=== PATIENT | female | born 1965 | race Caucasian/White ===

== ENCOUNTER 2017-08-30 11:39 | Inpatient (IN) | payer BC ==
[2017-08-30] MEDS ORDERED: Ondansetron INJ* 2 MG/ML VIAL IV ONE (12:23)
[2017-08-30] MEDS ORDERED: Morphine INJ* 4 MG/ML 1 ML SYRINGE (NEW SYRINGE VERSION) IV ONE (12:23)
[2017-08-30 12:25] LABS: Hematocrit 27 % (35-47); Hemoglobin 7.8 g/dl (12.0-16.0); Mean Corpuscular HGB Conc 29 g/dl (31-36); Mean Corpuscular Hemoglobin 16 pg (27-31); Mean Corpuscular Volume 56 fL (80-97); Mean Platelet Volume 8.3 um3 (7.4-10.4); Platelet Count 247 10^3/ul (150-450); Red Blood Count 4.79 10^6/ul (4.0-5.4); Red Cell Distribution Width 22 % (10.5-15); White Blood Count 5.1 10^3/ul (3.5-10.8)
[2017-08-30] MEDS ORDERED: NS 0.9% 1000 ML* 1,000 ML IV SCH (12:30)
[2017-08-30 12:36] LABS: INR 0.9 (0.77-1.02)
[2017-08-30 12:45] LABS: EGFR Non-African American 86.8 (>60)
[2017-08-30 12:55] LABS: ABS Basophils 0.1 10^3/ul (0-0.2); ABS Eosinophils 0.1 10^3/ul (0-0.6); ABS Lymphocytes 1.3 10^3/ul (1.0-4.8); ABS Monocytes 0.5 10^3/ul (0-0.8); ABS Neutrophils 3.1 10^3/ul (1.5-7.7); ABS Nucleated RBC 0 10^3/ul; Eosinophil % 2.1 % (0-6); Lymphocyte % 25.3 % (25-47); Nucleated Red Blood Cells % 0
[2017-08-30] MEDS ORDERED: Iohexol 350* (CONTRAST) 500 ML MDV IV ONE (13:04)
--- NOTE | 2017-08-30 13:05 | RAD ---
INDICATION: Chest pressure and headache COMPARISON: None. TECHNIQUE: Single AP portable view of the chest was obtained. FINDINGS: Image quality is compromised due to the relative inferiority of a portable chest x-ray. The heart and mediastinum exhibit normal size and contour. The lungs are grossly clear. There is no evidence of a large pleural effusion. Visualized bones are normal for the patient's age. IMPRESSION: No radiographic evidence for acute cardiopulmonary abnormality on this portable chest x-ray.
--- NOTE | 2017-08-30 14:38 | RAD ---
HISTORY: Headache, neck pain COMPARISONS: CT dated August 30, 2017 TECHNIQUE: Multiple contiguous axial CT scans were obtained of the head and neck after the administration of nonionic intravenous contrast timed to the systemic arterial phase of contrast enhancement. Coronal and sagittal multiplanar reformations are submitted for review. Multiple 3-D maximum intensity projection reconstructions are also submitted for review. FINDINGS: CTA NECK: AORTIC ARCH: There is a normal three-vessel branching pattern of the aortic arch. There is no ostial or proximal stenosis of the cephalic great vessels. RIGHT VERTEBRAL ARTERY: The right vertebral artery is patent along its course, without stenosis. LEFT VERTEBRAL ARTERY: The left vertebral artery is patent along its course, without stenosis. DOMINANCE: The vertebral arteries are codominant. RIGHT COMMON CAROTID ARTERY: The right common carotid artery is patent. The right carotid bifurcation occurs at C3-C4 RIGHT INTERNAL CAROTID ARTERY: There is no right internal carotid artery stenosis by NASCET criteria. The right internal carotid artery is tortuous. RIGHT EXTERNAL CAROTID ARTERY: The right external carotid artery is unremarkable. LEFT COMMON CAROTID ARTERY: The left common carotid artery is patent. The left carotid bifurcation occurs at C3-C4 LEFT INTERNAL CAROTID ARTERY: There is no left internal carotid artery stenosis by NASCET criteria. Left internal carotid artery structures. LEFT EXTERNAL CAROTID ARTERY: The left external carotid artery is unremarkable. VENOUS CIRCULATION: The venous system is unremarkable. SALIVARY GLANDS: The parotid glands, submandibular glands, sublingual glands are normal. NASAL CAVITY/NASOPHARYNX: The nasal cavity and nasopharynx are normal. ORAL CAVITY/OROPHARYNX: The oral cavity is obscured by streak artifact from dental amalgam. The visualized oral cavity and oropharynx are unremarkable. LARYNGEAL APPARATUS/HYPOPHARYNX: The laryngeal apparatus and hypopharynx are normal. UPPER AIRWAY/UPPER ESOPHAGUS: The visualized upper airway and esophagus are normal. LUNG APICES: The lung apices are clear. THYROID GLAND: The thyroid gland is normal. LYMPH NODES: There is no lymphadenopathy by size criteria. BONES AND SOFT TISSUES: Degenerative changes are noted of the spine. CTA HEAD: INTRACRANIAL CIRCULATION: There is no aneurysm, vascular malformation, occlusion, or stenosis of the visualized intracranial circulation. The anterior communicating artery complex is clear. Bilateral posterior communicating arteries are identified. VENOUS CIRCULATION: The venous system is unremarkable. PERFUSION: There is no obvious parenchymal perfusion deficit. HEMORRHAGE/INFARCT: There is no hemorrhage or acute infarct. MASSES/SHIFT: There is no mass or shift. EXTRA-AXIAL SPACES: There are no extra-axial fluid collections. SULCI AND VENTRICLES: The sulci and ventricles are normal in size and position for the patient's stated age. CEREBRUM: There are no focal parenchymal abnormalities. BRAINSTEM: There are no focal parenchymal abnormalities. CEREBELLUM: There are no focal parenchymal abnormalities. PARANASAL SINUSES: The paranasal sinuses are clear. ORBITS: The orbits are unremarkable. BONES AND SOFT TISSUE: No bone or soft tissue abnormalities are noted. OTHER: There is no abnormal enhancement. IMPRESSION: 1. NO INTERNAL CAROTID ARTERY STENOSIS BY NASCET CRITERIA. 2. NO ANEURYSM, VASCULAR MALFORMATION, OCCLUSION, OR STENOSIS OF THE VISUALIZED INTRACRANIAL CIRCULATION.. CPT II Codes: 3100F
--- NOTE | 2017-08-30 14:48 | RAD ---
INDICATION: Chest pain. Short of breath. Evaluate for pulmonary embolus. COMPARISON: Chest x-ray August 22, 2017 TECHNIQUE: Axial source images were obtained from the thoracic inlet to the hemidiaphragms following administration of [address] angiographic technique was utilized. Coronal and sagittal reconstructed images were acquired. CHEST FINDINGS: Neck/thyroid: The visualized neck to include the thyroid appear normal. Chest wall: There are no acute abnormalities of the bony thorax or chest wall. There is no supraclavicular, infraclavicular, or axillary lymphadenopathy. Lungs : There are no pulmonary parenchymal masses or infiltrates. The pulmonary interstitium appears normal. There are no endobronchial lesions. Cardiomediastinal structures: There is no CT evidence of acute pulmonary embolic disease. There is mildly limited evaluation of the distal pulmonary arterial branches. Suggest correlation with the d-dimer. The heart is enlarged. There is no pericardial effusion. There is no evidence of aortic aneurysm or dissection. There is no mediastinal or hilar adenopathy. The esophagus appears normal. Pleura : There are no pleural-based masses or effusions. Other: None. IMPRESSION: NO CT EVIDENCE OF ACUTE PULMONARY EMBOLIC DISEASE. LUNGS CLEAR
--- NOTE | 2017-08-30 15:09 | RAD ---
Indication: Head and neck pain. Comparison: CT angiogram of the head of the same date. Technique: Noncontrast CT vertex of skull through foramen magnum. Report: The sulci, ventricles, and basal cisterns are normal for age. Coronel matter white matter differentiation is preserved without evidence for edema. No intra or extra axial hemorrhage, mass, or fluid collection detected. Unremarkable visualized orbital contents. Unremarkable calvarium and skull base. Unremarkable scalp. The visualized paranasal sinuses and mastoid air spaces are clear. IMPRESSION: Negative unenhanced head CT.
[2017-08-30] MEDS ORDERED: HYDROmorphone INJ* 1 MG/ML CARPUJECT SYRINGE IV ONE (15:14)
[2017-08-30] MEDS ORDERED: Iron Sucrose* 200 MG in NS 0.9% 100 ML* 100 ML IVPB ONE (16:41)
--- NOTE | 2017-08-30 16:51 | ADMNOTE ---
Subjective Date of Service: 08/30/17 Interval History: ADMISSION HISTORY AND PHYSICAL EXAM: Allergies Allergy/AdvReac Type Severity Reaction Status Date / Time Penicillins Allergy Rash Verified 08/30/17 16:00 Sulfa (Sulfonamide Allergy Rash Verified 08/30/17 16:00 Antibiotics) Home Medications Medication Instructions Recorded Confirmed Type Acetaminophen TAB* [Tylenol TAB*] 650 mg PO Q6H PRN 08/30/17 08/30/17 History Omeprazole CAP* [Prilosec CAP* 20 20 mg PO DAILY 08/30/17 08/30/17 History MG] guaiFENesin ER TAB [Mucinex*] 600 mg PO BID PRN 08/30/17 08/30/17 History HPI: The patient was in her usual state of health until this AM at home about 9AM she developed midsternal chest pressure radiating to her interscapular area and a severe headache. The chest pain lasted about 50 minutes but the headache persisted. She never had either type of pain before. She denies any unusual activity recently. She states she has had some sinus trouble and has a mild cough. Family History: Findings - F age 58 NM, brother age 56 had NM. Older sister A&W. Social History: Findings - , lives with her who is her SDM. Never smoked, no alcohol abuse. Past Medical History: Findings - L TKA, , BL breast reduction. 2 children. Review of Systems - Measurements Intake and Output: Intake and Output Last 24 Hours 08/28/17 08/29/17 08/30/17 08/31/17 06:59 06:59 06:59 06:59 Intake Total 1000 Balance 1000 Weight 225 lb Intake: IV Fluids 1000 - Review of Systems Constitutional Symptoms: Positive: Weight Gain Dermatology: Negative: Normal, Rash, Skin Lesions, Cancer, Skin Lumps, Other HEENT: Positive: Sinus Problem Eyes: Positive: Normal Thyroid: Positive: Normal Pulmonary: Positive: Cough - mild, related to sinus problem Cardiology: Positive: Chest Pain Gastroenterology: Positive: Normal Genitourinay - Female: Positive: Other - irregular and heavy menses Musculoskeletal: Negative: Joint Pain, Joint Stiffness, Arthritis, Osteoporosis, Low Back Pain , Sciatica, Joint Deformities, Kyphoscoliosis, Other Endocrinology: Positive: Normal Hematologic/Lymphatic: Positive: Anemia - She was prescribed iron in 2014. Neurology: Positive: Headache Psychiatry: Positive: Normal Allergic/Immunologic: Negative: Hx Anaphylaxis, Hx Angioedema, Hx Environmental, Hx Seasonal, Athsma, Hx HIV, Immunocompromise, Swollen Glands LymphNodes, Other Objective Active Medications: Acetaminophen (Tylenol Tab*) 975 mg PO Q6H PRN PRN Reason: PAIN Aspirin (Aspirin Low Dose Tab*) 81 mg PO DAILY VAL Iron Sucrose 200 mg/ Sodium (Chloride) 110 mls @ 110 mls/hr IVPB ONCE ONE Stop: 08/30/17 17:40 Tramadol HCl (Ultram*) 50 mg PO Q6H PRN PRN Reason: PAIN Vital Signs - 8 hr 08/30/17 08/30/17 08/30/17 11:48 12:02 12:04 Temperature 99.7 F Pulse Rate 106 106 Respiratory 20 15 Rate Blood Pressure 183/108 174/93 (mmHg) O2 Sat by Pulse 97 99 Oximetry 08/30/17 08/30/17 08/30/17 12:30 13:01 13:04 Temperature Pulse Rate 90 89 Respiratory 17 22 20 Rate Blood Pressure 158/80 (mmHg) O2 Sat by Pulse 99 98 Oximetry 08/30/17 08/30/17 08/30/17 13:06 13:14 13:51 Temperature Pulse Rate 93 78 Respiratory 19 18 Rate Blood Pressure 168/81 149/82 (mmHg) O2 Sat by Pulse 98 98 Oximetry 08/30/17 08/30/17 08/30/17 14:00 14:30 15:00 Temperature Pulse Rate 94 91 89 Respiratory 18 18 14 Rate Blood Pressure 143/96 147/77 145/83 (mmHg) O2 Sat by Pulse 98 98 98 Oximetry 08/30/17 08/30/17 15:30 15:56 Temperature Pulse Rate 79 Respiratory 21 18 Rate Blood Pressure 151/80 (mmHg) O2 Sat by Pulse 97 Oximetry Oxygen Devices in Use Now: None Appearance: Alert, supine on ED stretcher. Appears somewhat uncomfortable. In fair spirits. Eyes: No Scleral Icterus Respiratory: Symmetrical Chest Expansion and Respiratory Effort, Clear to Auscultation, Clear to Percussion Cardiovascular: NL Sounds; No Murmurs; No JVD, RRR, No Edema, - Abdominal: NL Sounds; No Tenderness; No Distention, No Hepatosplenomegaly, - Extremities: No Edema, No Clubbing, Cyanosis, - Skin: No Rash or Ulcers, No Nodules or Sclerosis, - Neurological: Alert and Oriented x 3, NL Sensation Result Diagrams: 08/30/17 12:10 08/30/17 12:10 Assess/Plan/Problems-Billing Assessment: - Patient Problems (1) Chest pain Current Visit: Yes Status: Acute Code(s): R07.9 - CHEST PAIN, UNSPECIFIED SNOMED Code(s): 08348124 Comment: Atypical. Patient walks 15-20 min 2-3 times a week without difficulty. Third troponin, tele, nuclear exercise stress test ordered. (2) Iron deficiency anemia Current Visit: Yes Status: Acute Code(s): D50.9 - IRON DEFICIENCY ANEMIA, UNSPECIFIED SNOMED Code(s): 55441782 Comment: Iron sucrose ordered, might help her headache. If anemia is precipitating ACS would transfuse.
[2017-08-30] MEDS ORDERED: Aspirin 81 mg CHEW TAB* 81 MG TAB.CHEW PO ONE (17:21)
--- NOTE | 2017-08-30 17:26 | ED ---
Tori Huitron Gabriel, scribed for Fahad Carroll MD on 08/30/17 at 1222 . HPI Chest Pain - HPI Summary HPI Summary: This patient is a 52 year old F presenting to [facility] accompanied by her with a chief complaint of CP since 0900 this morning. The patient rates the pain 10/10 in severity and states it radiates into her shoulder blades/ back. Patient reports photophobia, stiff neck, and a severe ZAMORA. Patient denies ABD pain. - History of Current Complaint Chief Complaint: EDChestPainROMI Time Seen by Provider: 08/30/17 12:08 Hx Obtained From: Patient Hx Last Menstrual Period: heavy and erratic - December 16 started last Onset/Duration: Still Present Time of Onset: 09:00 Timing: Constant Initial Severity: Severe Current Severity: Severe Pain Intensity: 10 Pain Scale Used: 0-10 Numeric Chest Pain Location: Diffuse Chest Pain Radiates: Yes Chest Pain Radiates To:: Back, Shoulder - blades Associated Signs and Symptoms: Positive: Negative - ABD pain, Other: - photophobia, stiff neck, and a severe ZAMORA. - Allergy/Home Medications Allergies/Adverse Reactions: Allergies Allergy/AdvReac Type Severity Reaction Status Date / Time Penicillins Allergy Rash Verified 08/30/17 16:00 Sulfa (Sulfonamide Allergy Rash Verified 08/30/17 16:00 Antibiotics) Home Medications: Home Medications Acetaminophen TAB* [Tylenol TAB*] 650 mg PO Q6H PRN 08/30/17 [History Confirmed 08/30/17] Omeprazole CAP* [Prilosec CAP* 20 MG] 20 mg PO DAILY 08/30/17 [History Confirmed 08/30/17] guaiFENesin ER TAB [Mucinex*] 600 mg PO BID PRN 08/30/17 [History Confirmed ] PMH/Surg Hx/FS Hx/Imm Hx Endocrine/Hematology History: Denies: Hx Thyroid Disease Cardiovascular History: Reports: Hx Hypertension Denies: Hx Syncope Respiratory History: Denies: Hx Chronic Obstructive Pulmonary Disease (COPD) GI History: Denies: Hx Crohn's Disease, Hx Diverticulosis Psychiatric History: Denies: Hx Attention Deficit Hyperactivity Disorder - Surgical History Surgery Procedure, Year, and Place: breast reduction 1993; left knee arthroscopic 1987 and 1988 then partial knee replacement 2003 and total knee replacement 2015; Infectious Disease History: No Infectious Disease History: Denies: Hx Clostridium Difficile, Hx Hepatitis, Hx Human Immunodeficiency Virus (HIV), Hx of Known/Suspected MRSA, Hx Shingles, Hx Tuberculosis, Hx Known/ Suspected VRE, Hx Known/Suspected VRSA, History Other Infectious Disease, Traveled Outside the [place] in Last 30 Days - Family History Known Family History: Positive: Hypertension - Social History Occupation: Employed Full-time Lives: With Family Alcohol Use: Weekly Substance Use Type: Reports: None Smoking Status (MU): Never Smoked Tobacco Review of Systems Positive: Photophobia Positive: Chest Pain Negative: Abdominal Pain Positive: Other - stiff neck Positive: Headache All Other Systems Reviewed And Are Negative: Yes Physical Exam - Summary Physical Exam Summary: General: well-appearing, moderate pain distress Skin: warm, color reflects adequate perfusion, dry Head: normal Eyes: EOMI, ROBERT, photophobia ENT: normal Neck: supple, nontender Respiratory: CTA, breath sounds present Cardiovascular: RRR Abdomen: soft, nontender Bowel: present Musculoskeletal: normal, strength/ROM intact Neurological: normal, sensory/motor intact, A&O x3 Psychological: affect/mood appropriate Triage Information Reviewed: Yes Vital Signs On Initial Exam: Initial Vitals Temp Pulse Resp BP Pulse Ox 99.7 F 106 20 183/108 97 08/30/17 11:48 08/30/17 11:48 08/30/17 11:48 08/30/17 11:48 08/30/17 11:48 Vital Signs Reviewed: Yes Diagnostics - Vital Signs Vital Signs Temp Pulse Resp BP Pulse Ox 08/30/17 11:48 99.7 F 106 20 183/108 97 - Laboratory Lab Results: Lab Results 08/30/17 08/30/17 08/30/17 Range/Units 12:10 12:10 12:10 WBC 5.1 (3.5-10.8) 10^3/ul RBC 4.79 (4.0-5.4) 10^6/ul Hgb 7.8 L (12.0-16.0) g/dl Hct 27 L (35-47) % MCV 56 L (80-97) fL MCH 16 L (27-31) pg MCHC 29 L (31-36) g/dl RDW 22 H (10.5-15) % Plt Count 247 (150-450) 10^3/ul MPV 8.3 (7.4-10.4) um3 Neut % (Auto) 61.0 (38-83) % Lymph % (Auto) 25.3 (25-47) % [place] % (Auto) 10.5 H (0-7) % Eos % (Auto) 2.1 (0-6) % Baso % (Auto) 1.1 (0-2) % Absolute Neuts (auto) 3.1 (1.5-7.7) 10^3/ul Absolute Lymphs (auto) 1.3 (1.0-4.8) 10^3/ul Absolute Monos (auto) 0.5 (0-0.8) 10^3/ul Absolute Eos (auto) 0.1 (0-0.6) 10^3/ul Absolute Basos (auto) 0.1 (0-0.2) 10^3/ul Absolute Nucleated RBC 0 10^3/ul Nucleated RBC % 0 Hypochromasia 1+ Microcytosis 2+ Hem Pathologist Commnt Pending INR (Anticoag Therapy) (0.77-1.02) D-Dimer, Quantitative (Less Than 230) ng/mL Sodium 135 L (139-145) mmol/L Potassium 3.9 (3.5-5.0) mmol/L Chloride 104 (101-111) mmol/L Carbon Dioxide 22 (22-32) mmol/L Anion Gap 9 (2-11) mmol/L BUN 10 (6-24) mg/dL Creatinine 0.71 (0.51-0.95) mg/dL Est GFR ( Amer) 111.6 (>60) Est GFR (Non-Af Amer) 86.8 (>60) BUN/Creatinine Ratio 14.1 (8-20) Glucose 199 H (70-100) mg/dL Lactic Acid 1.5 (0.5-2.0) mmol/L Calcium 9.3 (8.6-10.3) mg/dL Total Bilirubin 0.20 (0.2-1.0) mg/dL AST 18 (13-39) U/L ALT 17 (7-52) U/L Alkaline Phosphatase 73 (34-104) U/L Troponin I 0.01 (<0.04) ng/mL C-Reactive Protein 4.27 (< 5.00) mg/L Total Protein 7.3 (6.4-8.9) g/dL Albumin 4.1 (3.2-5.2) g/dL Globulin 3.2 (2-4) g/dL Albumin/Globulin Ratio 1.3 (1-3) Lipase 20 (11.0-82.0) U/L 08/30/17 08/30/17 Range/Units 12:10 14:51 WBC (3.5-10.8) 10^3/ul RBC (4.0-5.4) 10^6/ul Hgb (12.0-16.0) g/dl Hct (35-47) % MCV (80-97) fL MCH (27-31) pg MCHC (31-36) g/dl RDW (10.5-15) % Plt Count (150-450) 10^3/ul MPV (7.4-10.4) um3 Neut % (Auto) (38-83) % Lymph % (Auto) (25-47) % [place] % (Auto) (0-7) % Eos % (Auto) (0-6) % Baso % (Auto) (0-2) % Absolute Neuts (auto) (1.5-7.7) 10^3/ul Absolute Lymphs (auto) (1.0-4.8) 10^3/ul Absolute Monos (auto) (0-0.8) 10^3/ul Absolute Eos (auto) (0-0.6) 10^3/ul Absolute Basos (auto) (0-0.2) 10^3/ul Absolute Nucleated RBC 10^3/ul Nucleated RBC % Hypochromasia Microcytosis Hem Pathologist Commnt INR (Anticoag Therapy) 0.90 (0.77-1.02) D-Dimer, Quantitative 362 H (Less Than 230) ng/mL Sodium (139-145) mmol/L Potassium (3.5-5.0) mmol/L Chloride (101-111) mmol/L Carbon Dioxide (22-32) mmol/L Anion Gap (2-11) mmol/L BUN (6-24) mg/dL Creatinine (0.51-0.95) mg/dL Est GFR ( Amer) (>60) Est GFR (Non-Af Amer) (>60) BUN/Creatinine Ratio (8-20) Glucose (70-100) mg/dL Lactic Acid (0.5-2.0) mmol/L Calcium (8.6-10.3) mg/dL Total Bilirubin (0.2-1.0) mg/dL AST (13-39) U/L ALT (7-52) U/L Alkaline Phosphatase (34-104) U/L Troponin I 0.06 H* (<0.04) ng/mL C-Reactive Protein (< 5.00) mg/L Total Protein (6.4-8.9) g/dL Albumin (3.2-5.2) g/dL Globulin (2-4) g/dL Albumin/Globulin Ratio (1-3) Lipase (11.0-82.0) U/L Result Diagrams: 08/30/17 12:10 08/30/17 12:10 Lab Statement: Any lab studies that have been ordered have been reviewed, and results considered in the medical decision making process. - Radiology CXR Xray Interpretation: No Acute Changes - No radiographic evidence for acute cardiopulmonary abnormality on this portable chest x-ray. ED physician reviewed this radiology report. Radiology Interpretation Completed By: Radiologist - CT CTA Chest CT Interpretation: No Acute Changes - NO CT EVIDENCE OF ACUTE PULMONARY EMBOLIC DISEASE. LUNGS CLEAR. ED physician reviewed this radiology report. CT Interpretation Completed By: Radiologist CTA Head/Neck CT Interpretation: No Acute Changes - 1. NO INTERNAL CAROTID ARTERY STENOSIS BY NASCET CRITERIA. 2. NO ANEURYSM, VASCULAR MALFORMATION, OCCLUSION, OR STENOSIS OF THE VISUALIZED INTRACRANIAL CIRCULATION.. ED physician reviewed this radiology report. CT Interpretation Completed By: Radiologist CT Brain CT Interpretation: No Acute Changes - Negative unenhanced head CT. ED physician reviewed this radiology report. CT Interpretation Completed By: Radiologist - EKG 1149 Cardiac Rate: Tachycardia EKG Rhythm: Sinus Tachycardia - at [address] Segment: Normal EKG Interpretation: PVC's Re-Evaluation - Re-Evaluation First Eval Re-Evaluation Time: 15:08 Comment: Discussed results with the pt. Chest Pain Course/Dx - Course Course Of Treatment: CHEST PAIN ALMOST GONE IN ED. ZAMORA IMPROVED BUT, NOT MUCH CHEST PAIN. ADMIT HOSPITALIST. DISCUSSED WITH DR CALZADA. Assessment/Plan: Medications reviewed. Allergies noted. BP noted and advised to follow up with PCP. - Diagnoses Provider Diagnoses: Chest pain, Headache, Anemia Discharge - Sign-Out/Discharge Documenting (check all that apply): Discharge - Discharge Plan Condition: Good Disposition: ADMITTED TO [facility] Referrals: Eliana Yap NP [Primary Care Provider] - - Billing Disposition and Condition Condition: GOOD Disposition: [facility] [place] The documentation as recorded by the Tori almeida Gabriel accurately reflects the service I personally performed and the decisions made by me, Fahad Carroll MD.
[2017-08-30] MEDS: traMADol TAB* 50 MG PO PRN (18:58)
[2017-08-30] MEDS ORDERED: Nitroglycerin TAB 0.4 MG* 0.4 MG TAB SL PRN (19:44)
[2017-08-31] MEDS: Acetaminophen TAB* 325 MG PO PRN ×2 (01:39→21:57)
[2017-08-31] MEDS: traMADol TAB* 50 MG PO PRN ×2 (03:47→12:14)
[2017-08-31] MEDS: Aspirin 81 mg CHEW TAB* 81 MG TAB.CHEW PO SCH (08:20)
[2017-08-31] MEDS ORDERED: Metoprolol Tartrate TAB* 25 MG PO SCH (10:00)
--- NOTE | 2017-08-31 12:29 | RAD ---
INDICATION: Iron deficiency anemia COMPARISON: None. TECHNIQUE: Real-time transabdominal and transvaginal ultrasound examination of the female pelvis including grayscale and Doppler color flow imaging. FINDINGS: Uterus: The uterus is mildly enlarged measuring 11 cm in length and 6.2 x 6.4 cm in the transverse plane. The myometrium is heterogeneous in echogenicity. The endometrial stripe is thickened up to 2.1 cm. The uterine fundus has a "bulbous" appearance. Ovaries: The right and left ovary measure 3.2 x 1.9 x 2.6 cm and 3.1 x 1.8 x 2.3 cm, respectively. Normal arterial and venous waveforms are identified. Appearance is within normal limits for the patient's age. There is no free fluid in the cul-de-sac. IMPRESSION: In the setting of iron deficiency anemia in a woman who is still undergoing menstrual cycles the ultrasound findings are suspicious for either a large ill-defined uterine fibroid or adenomyosis. MRI of the pelvis, preferably with contrast, according to the uterine fibroid protocol well confidently determine the presence of uterine fibroids and/or adenomyosis.
[2017-08-31] MEDS ORDERED: Perflutren Lipid Microsphere* 3 ML VIAL ONE (12:49)
--- NOTE | 2017-08-31 13:30 | PN ---
Subjective Date of Service: 08/31/17 Interval History: Headache and chest pressure both better. No BM since admission. Family History: Findings - F age 58 GA, brother age 56 had GA. Older sister A&W. Social History: Findings - , lives with her who is her SDM. Never smoked, no alcohol abuse. Past Medical History: Findings - L TKA, , BL breast reduction. 2 children. Objective Active Medications: Acetaminophen (Tylenol Tab*) 975 mg PO Q6H PRN PRN Reason: PAIN Last Admin: 08/31/17 01:39 Dose: 975 mg Aspirin (Aspirin Low Dose Tab*) 81 mg PO DAILY VAL Last Admin: 08/31/17 08:20 Dose: 81 mg Atorvastatin Calcium (Lipitor*) 80 mg PO 1700 VAL Metoprolol Tartrate (Lopressor Tab*) 12.5 mg PO Q12HR [facility] Last Admin: 08/31/17 10:18 Dose: 12.5 mg Nitroglycerin (Nitroglycerin Tab 0.4 Mg*) 0.4 mg SL Q5M PRN PRN Reason: ANGINA Last Admin: 08/30/17 20:03 Dose: 0.4 mg Tramadol HCl (Ultram*) 50 mg PO Q6H PRN PRN Reason: PAIN Last Admin: 08/31/17 12:14 Dose: 50 mg Vital Signs - 8 hr 08/31/17 08/31/17 08/31/17 11:08 12:14 12:19 Temperature 99.3 F Pulse Rate 70 Respiratory 16 18 Rate Blood Pressure 136/74 (mmHg) O2 Sat by Pulse 98 Oximetry Oxygen Devices in Use Now: None, Nasal Cannula Appearance: Alert, supine in bed, in good spirits Looks comfortable. Eyes: No Scleral Icterus Respiratory: Symmetrical Chest Expansion and Respiratory Effort, Clear to Auscultation, Clear to Percussion Cardiovascular: NL Sounds; No Murmurs; No JVD, RRR, No Edema, - Extremities: No Edema, No Clubbing, Cyanosis, - Skin: No Rash or Ulcers, No Nodules or Sclerosis, - Neurological: Alert and Oriented x 3, NL Sensation Result Diagrams: 08/30/17 12:10 08/30/17 12:10 Additional Lab and Data: Lab Results 08/30/17 08/30/17 08/30/17 Range/Units 12:10 12:10 12:10 WBC 5.1 (3.5-10.8) 10^3/ul RBC 4.79 (4.0-5.4) 10^6/ul Hgb 7.8 L (12.0-16.0) g/dl Hct 27 L (35-47) % MCV 56 L (80-97) fL MCH 16 L (27-31) pg MCHC 29 L (31-36) g/dl RDW 22 H (10.5-15) % Plt Count 247 (150-450) 10^3/ul MPV 8.3 (7.4-10.4) um3 Neut % (Auto) 61.0 (38-83) % Lymph % (Auto) 25.3 (25-47) % Mohave % (Auto) 10.5 H (0-7) % Eos % (Auto) 2.1 (0-6) % Baso % (Auto) 1.1 (0-2) % Absolute Neuts (auto) 3.1 (1.5-7.7) 10^3/ul Absolute Lymphs (auto) 1.3 (1.0-4.8) 10^3/ul Absolute Monos (auto) 0.5 (0-0.8) 10^3/ul Absolute Eos (auto) 0.1 (0-0.6) 10^3/ul Absolute Basos (auto) 0.1 (0-0.2) 10^3/ul Absolute Nucleated RBC 0 10^3/ul Nucleated RBC % 0 Hypochromasia 1+ Microcytosis 2+ Hem Pathologist Commnt Pending INR (Anticoag Therapy) (0.77-1.02) D-Dimer, Quantitative (Less Than 230) ng/mL Sodium 135 L (139-145) mmol/L Potassium 3.9 (3.5-5.0) mmol/L Chloride 104 (101-111) mmol/L Carbon Dioxide 22 (22-32) mmol/L Anion Gap 9 (2-11) mmol/L BUN 10 (6-24) mg/dL Creatinine 0.71 (0.51-0.95) mg/dL Est GFR ( Amer) 111.6 (>60) Est GFR (Non-Af Amer) 86.8 (>60) BUN/Creatinine Ratio 14.1 (8-20) Glucose 199 H (70-100) mg/dL Lactic Acid 1.5 (0.5-2.0) mmol/L Calcium 9.3 (8.6-10.3) mg/dL Total Bilirubin 0.20 (0.2-1.0) mg/dL AST 18 (13-39) U/L ALT 17 (7-52) U/L Alkaline Phosphatase 73 (34-104) U/L Troponin I 0.01 (<0.04) ng/mL C-Reactive Protein 4.27 (< 5.00) mg/L Total Protein 7.3 (6.4-8.9) g/dL Albumin 4.1 (3.2-5.2) g/dL Globulin 3.2 (2-4) g/dL Albumin/Globulin Ratio 1.3 (1-3) Lipase 20 (11.0-82.0) U/L 08/30/17 08/30/17 Range/Units 12:10 14:51 WBC (3.5-10.8) 10^3/ul RBC (4.0-5.4) 10^6/ul Hgb (12.0-16.0) g/dl Hct (35-47) % MCV (80-97) fL MCH (27-31) pg MCHC (31-36) g/dl RDW (10.5-15) % Plt Count (150-450) 10^3/ul MPV (7.4-10.4) um3 Neut % (Auto) (38-83) % Lymph % (Auto) (25-47) % Mohave % (Auto) (0-7) % Eos % (Auto) (0-6) % Baso % (Auto) (0-2) % Absolute Neuts (auto) (1.5-7.7) 10^3/ul Absolute Lymphs (auto) (1.0-4.8) 10^3/ul Absolute Monos (auto) (0-0.8) 10^3/ul Absolute Eos (auto) (0-0.6) 10^3/ul Absolute Basos (auto) (0-0.2) 10^3/ul Absolute Nucleated RBC 10^3/ul Nucleated RBC % Hypochromasia Microcytosis Hem Pathologist Commnt INR (Anticoag Therapy) 0.90 (0.77-1.02) D-Dimer, Quantitative 362 H (Less Than 230) ng/mL Sodium (139-145) mmol/L Potassium (3.5-5.0) mmol/L Chloride (101-111) mmol/L Carbon Dioxide (22-32) mmol/L Anion Gap (2-11) mmol/L BUN (6-24) mg/dL Creatinine (0.51-0.95) mg/dL Est GFR ( Amer) (>60) Est GFR (Non-Af Amer) (>60) BUN/Creatinine Ratio (8-20) Glucose (70-100) mg/dL Lactic Acid (0.5-2.0) mmol/L Calcium (8.6-10.3) mg/dL Total Bilirubin (0.2-1.0) mg/dL AST (13-39) U/L ALT (7-52) U/L Alkaline Phosphatase (34-104) U/L Troponin I 0.06 H* (<0.04) ng/mL C-Reactive Protein (< 5.00) mg/L Total Protein (6.4-8.9) g/dL Albumin (3.2-5.2) g/dL Globulin (2-4) g/dL Albumin/Globulin Ratio (1-3) Lipase (11.0-82.0) U/L Assess/Plan/Problems-Billing Assessment: - Patient Problems (1) Iron deficiency anemia Current Visit: Yes Status: Acute Code(s): D50.9 - IRON DEFICIENCY ANEMIA, UNSPECIFIED SNOMED Code(s): 34667134 Comment: Iron sucrose 200 mg given. 1 U PRBC 08/31, recheck and give second unit if hgb < 8.5. (2) Uterine bleeding Current Visit: Yes Status: Acute Code(s): N93.9 - ABNORMAL UTERINE AND VAGINAL BLEEDING, UNSPECIFIED SNOMED Code(s): 57815604 Comment: Abnl pelvic US. MRI pelvis w/o pending. Discussed with Dr. Oviedo and Dr. Alicia. (3) ACS (acute coronary syndrome) Current Visit: Yes Status: Acute Code(s): I24.9 - ACUTE ISCHEMIC HEART DISEASE, UNSPECIFIED SNOMED Code(s): 634823125 Comment: ACS, peak troponin 0.67. Starting statin, BB 08/31; continue ASA. Consider cath 09/01 after evaluation of uterine bleeding. Discussed with Dr. Root.
--- NOTE | 2017-08-31 14:11 | ECHO ---
Patient: QUANG ROONEY [facility] Rec#: [id number] : 1965 Date: 08/31/2017 Age: 52y Height: 167.64 cm / 66.0 in Weight: 101.6 kg / 223.9 lbs Sex: F BSA: 2.1 Room#: [facility] Admit Date#: 08/30/2017 Type: Inpatient Referring: Abrahan Vasquez MD Reading: Mark Root MD Yacht Master: Jocelyne Loya RDCS CC: Eliana Yap, DIRECTOR CORPORATE COMMUNICATIONS Transthoracic Echocardiogram Indication: CP, ACS. BP: 107/72 HR: 75 Rhythm: NSR Findings History: Anemia, HTN. Technical Comments: The study quality is fair. The study is technically limited due to poor apical windows. Completed at 1335. Left Ventricle: The left ventricular chamber size is normal. There is no left ventricular hypertrophy. Global left ventricular wall motion and contractility are within normal limits. Left ventricular systolic function is at the lower limits of normal. The estimated ejection fraction is 50-55%. Normal left ventricular diastolic filling is observed. Left Atrium: The left atrium is mildly dilated. Right Ventricle: Moderator Band present. The right ventricle is mildly dilated. The right ventricular global systolic function is low normal. Right Atrium: The right atrium is mildly dilated. Aortic Valve: The aortic valve is trileaflet. There is no evidence of aortic valve thickening. There is a trace of aortic regurgitation. There is no evidence of aortic stenosis. Mitral Valve: The mitral valve leaflets are mildly thickened. There is a trace of mitral regurgitation. There is no evidence of mitral stenosis. Tricuspid Valve: The tricuspid valve leaflets are normal. There is a physiologic tricuspid regurgitation. The right ventricular systolic pressure is estimated at 24 mmHg. No pulmonary hypertension is noted. There is no tricuspid stenosis. Pulmonic Valve: The pulmonic valve appears normal. There is no pulmonic stenosis. Pericardium: There is no significant pericardial effusion. Aorta: There is no dilatation of the ascending aorta. There is no dilatation of the aortic arch. The aortic root is normal in size. Pulmonary Artery: The main pulmonary artery appears normal. Venous: The inferior vena cava appears normal in size. There is a greater than 50% respiratory change in the inferior vena cava dimension. Contrast: Definity was used to optimize study. 3 mL of diluted Definity was utilized. Intravenous contrast was used to enhance endocardial border definition. Conclusions Left ventricular systolic function is at the lower limits of normal. The estimated ejection fraction is 50-55%. Normal left ventricular diastolic filling is observed. No significant valvular disease: There is a trace of aortic regurgitation. There is a trace of mitral regurgitation. No reports of prior studies offered for comparison. Measurements Name Value Normal Range RVIDd (AP) 2D 3.1 cm (0.9 - 2.6) RVDdMajor (2D) 4.9 cm (2.2 - 4.4) RAd ISD 4CH 5.2 cm (3.4 - 4.9) RA (A4C)W 5 cm (2.9 - 4.6) IVSd (2D) 1 cm (0.6 - 1) LVPWd (2D) 1 cm (0.6 - 1) LVIDd (2D) 5.2 cm (3.6 - 5.4) LVIDs (2D) 3.9 cm - LV FS (2D) 25 % (25 - 45) Aortic Annulus 2.2 cm (1.4 - 2.6) Ao root diameter (2D) 3 cm (2.1 - 3.5) Ascending Ao 3.2 cm (2.1 - 3.4) Aortic arch 2.7 cm (1.8 - 3.4) LA dimension (AP) 2D 4.1 cm (2.3 - 3.8) LAd ISD 4CH 5.5 cm (2.9 - 5.3) LA ISD 4CH W 5 cm (2.5 - 4.5) Name Value Normal Range LA ESV SP 4CH (A/L) 75 ml - LA ESV SP 2CH (A/L) 102 ml - LA ESV BP (A/L) 92 ml - LA ESV BP (A/L) index 44 ml/m2 - LA ESV SP 4CH (MOD) 71 ml - LA ESV SP 2CH (MOD) 96 ml - Name Value Normal Range MV E-wave Vmax 0.84 m/sec - MV deceleration time 192 msec - MV A-wave Vmax 0.54 m/sec - MV E:A ratio 1.56 ratio - LV septal e' Vmax 0.1 m/sec - LV lateral e' Vmax 0.11 m/sec - LV E:e' septal ratio 8.4 ratio - LV E:e' lateral ratio 7.64 ratio - Name Value Normal Range AV Vmax 1.3 m/sec - AV VTI 30.3 cm - AV peak gradient 7.14 mmHg - AV mean gradient 4.96 mmHg - LVOT Vmax 1.2 m/sec - LVOT VTI 23.98 cm - LVOT peak gradient 5.74 mmHg - LVOT mean gradient 2.69 mmHg - HUNG Vmax 1.04 m/sec - Name Value Normal Range TR Vmax 2.3 m/sec - TR peak gradient 21 mmHg - RAP 3 mmHg - RVSP 24 mmHg - IVC diameter 2 cm - Name Value Normal Range PV Vmax 0.76 m/sec - PV peak gradient 2.35 mmHg -
[2017-08-31] MEDS: Atorvastatin* 80 MG TAB PO SCH (16:51)
[2017-08-31 17:28] LABS: ABS Basophils 0.1 10^3/ul (0-0.2); ABS Eosinophils 0.1 10^3/ul (0-0.6); ABS Lymphocytes 1.2 10^3/ul (1.0-4.8); ABS Monocytes 0.5 10^3/ul (0-0.8); ABS Neutrophils 5.1 10^3/ul (1.5-7.7); ABS Nucleated RBC 0 10^3/ul; Eosinophil % 2.1 % (0-6); Hematocrit 31 % (35-47); Lymphocyte % 17.6 % (25-47); Mean Corpuscular HGB Conc 29 g/dl (31-36); Mean Corpuscular Hemoglobin 17 pg (27-31); Mean Corpuscular Volume 59 fL (80-97); Mean Platelet Volume 8.4 um3 (7.4-10.4); Nucleated Red Blood Cells % 0.1; Platelet Count 246 10^3/ul (150-450); Red Blood Count 5.25 10^6/ul (4.0-5.4); Red Cell Distribution Width 24 % (10.5-15)
--- NOTE | 2017-08-31 17:30 | CONS ---
CC: Eliana Yap NP, [facility] * CARDIOLOGY CONSULT: DATE OF CONSULT: 08/31/17 INDICATION FOR CONSULT: Asked by Dr. Vasquez, hospitalist, at [facility] to assess the patient with chest discomfort and abnormal troponins. HISTORY OF PRESENT ILLNESS: The patient is a pleasant 52-year-old female with no prior known cardiac history. Specifically she denies any history of myocardial infarction, congestive heart failure, or significant heart rhythm disturbance. The patient was in her usual state of health until yesterday when she was sitting at a dining room table reading and she developed a bad headache and then developed a pressure sensation in her chest and shoulder blades and back. She had mild shortness of breath with it, no nauseousness or vomiting. She had mid diaphoresis. It lasted initially for 10 minutes. It came back again some 15 to 20 minutes later when she was lying in bed and it lasted for almost 45 minutes and with that her brought her to the hospital. She came to the hospital and the discomfort continued, but then became much less in intensity. Overnight she has had a dull feeling in her shoulder blades and her chest. It eventually seemed to get better. She got up to use the bathroom, lied down and then got repeated headache and mild tightness in the chest. Currently, she describes a question of very mild discomfort in the chest area. It is nothing like it was before. Overnight the cardiac enzyme with respect to troponin show an increase from 0.01 on admission to 0.06, 0.27, 0.67, 0.66. There are no CPK or MBs. Her initial EKG done in the emergency room dated 08/30/17, time 11:49 a.m. revealed normal sinus rhythm with [address] No definitive acute [address]-T wave changes. A repeat EKG done last night at 1948 revealed sinus rhythm with no acute ST-T wave changes. There was minimal, if any J-point depression in the inferior leads with slightly sluggishly upsloping ST segments that may have been minimally depressed at 80 milliseconds after the J-point. No EKG was done prior to me being asked to see her. I ordered an EKG and that repeat EKG done this morning revealed sinus rhythm, heart rate 86 with no definitive acute ST-T wave changes noted. The other issue that was noted on her initial presentation revealed hemoglobin and hematocrit of 7.8 and 27 with a white count of 5100 and platelet count of 247,000. She had a profound microcytic anemia with an MCV of 56. According to the patient, she has had heavy menses particularly starting back in 2011. In investigating this by having a long discussion with her family physician, Eliana Yap and also discussing with the patient, the patient states that in 2014 when she had knee surgery scheduled at her preop assessment by the Orthopedics, they found that she was anemic and they recommended iron therapy and she started taking [id number] iron therapy. It is not clear to me whether or not Ms. Yap knew this and Ms. Yap tried to look at the records, but could not definitively document that. The patient admits she took the iron therapy, had the surgery and then she saw nurse practitioner, Fracisco on 12/17/14 and her hemoglobin and hematocrit was noted to be 9 and 29.1. As such, she ordered iron therapy for 1 month. Since that time to now, we have had no further followup on blood tests. The patient does admit that she had heavy menses, she thought that was just normal for her. She denies any history of hematochezia, hematemesis, or significant hematuria. Her bowel movements have been normal color, they have never been black or extremely dark. PAST MEDICAL HISTORY: Medical problems include a history of hypertension, but she is not on medication. She denies any diabetes. She does not know her cholesterol. She has never smoked. PAST SURGICAL HISTORY: Includes a left total knee surgery and a . ALLERGIES: She has an allergy to PENICILLIN and SULFA and some other pain medication for which she had some swelling, she does not know the name of that. FAMILY HISTORY: Her family history for the heart includes a father who had a bypass surgery at 45 and a brother who had a stent placed at 56. SOCIAL HISTORY: She does not smoke. She does not abuse alcohol or illicit drugs. REVIEW OF SYSTEMS: As per the H and P with no changes. PHYSICAL EXAM: Vital Signs: When I see her reveals blood pressure 127/72, pulse is regular 80, respirations 16, O2 saturation 98% on room air, and temperature is 99.4. Neck: Supple. There is no increased JVP. Carotids with good upstroke and volume without bruits. Conjunctivae are pink. Sclerae are clear. Lungs: Reveal no accessory muscle usage. There is good excursion. There is no active rales, rhonchi, or wheezes. Heart: Reveals no visible heaves, no palpable heaves or thrills. Normal S1, S2 with no S3, S4 gallop. No significant systolic or diastolic murmur. Abdomen: Soft, mildly obese, nontender without organomegaly. Extremities: Without clubbing, cyanosis, or chinyere pitting edema. Peripheral pulses are intact. Femoral pulse present without bruits. Neuro: The patient is alert and oriented with normal mentation. Musculoskeletal: The patient moves all extremities appropriate. Psychological: The patient with normal affect. DIAGNOSTIC STUDIES/LAB DATA: Laboratory results reveal hemoglobin and hematocrit 7.8 and 27, platelet count 247,000, white count is 5100. INR is 0.9. D-dimer is 362. Sodium 135, potassium 3.9, chloride 104, bicarb 22, BUN and creatinine of 10 and 0.7, lactic acid 1.5, nonfasting glucose of 199, SGOT 18, SGPT 17. Troponins were as described above. C-reactive protein is 4.27. Lipase is 20. Other reports include chest x-ray - no radiographic evidence for acute cardiopulmonary abnormality noted. Brain CT shows negative for unenhanced head CT. The head CTA reveals no internal carotid stenosis. No aneurysm, vascular malformation, occlusion, or stenosis of the visualized cranial circulation. Chest and thorax CTA reveals no evidence of acute pulmonary embolic disease. Lungs are clear. ASSESSMENT: Nona now presents with cardiac enzymes that are highly suggestive of the presence of acute coronary syndrome. Her case is complicated by significantly low hemoglobin and hematocrit. Ideally she should be on heparin therapy and dual antiplatelet therapy and cardiac catheterization be entertained. At this point in time, we need to know that we can proceed in that direction utilizing those drugs. In the meantime, I will recommend low dose beta nubia therapy with 12.5 b.i.d. metoprolol as well. I discussed all of this with the Dr. Vasquez who will be expediting an evaluation pursue whether or not we can safely utilize the appropriate cardiac anticoagulation and antiplatelet therapy. The risks and benefits of cardiac catheterization and possible intervention, as well as dual antiplatelet therapy were explained at length. She understood and wished to proceed . Once we have the okay for this from Dr. Vasquez, we will proceed. [id number]/[facility] #: [id number] [facility]
--- NOTE | 2017-08-31 19:39 | RAD ---
Study: MRI without contrast of the pelvis. History: Heavy menstrual bleeding and anemia Comparison: Pelvic ultrasound from the same day that depicts an enlarged and "globular" appearing uterus with heterogeneous myometrium Technique: MRI of the pelvis includes T1 in phase images, sagittal T2 and T1, axial T2 fat saturation and T1, coronal T2 and T1-weighted images. Findings: The uterus measures 10.6 x 6.2 cm in the sagittal plane and 6.2 cm transverse. The endometrial stripe measures approximately 14 mm in thickness best depicted on sagittal T2-weighted imaging. The junctional zone is thickened measuring nearly 24 mm posteriorly and approximately 15 mm anteriorly apices and sagittal image 16). Protruding towards the anterior fundal height endometrium is a 1.6 cm hypointense focus extending from the junctional zone (sagittal image 16 and axial image 12). This could either be a small uterine fibroid or represent the junctional zone irregularity that characterizes adenomyosis. There are no definite T2 bright hyperintensity foci within the myometrium. A fluid density structure at the level of the lower uterine segment measuring 5 mm is most consistent with a nabothian cyst. The right ovary measures 2.0 x 2.2 x 1.7 cm. The left ovary measures 3.2 x 2.3 x 2.5 cm. There is at least one subcentimeter T2 bright focus in each ovary consistent with ovarian follicle. There is no pelvic lymphadenopathy or free fluid. The visualized bones are normal in signal characteristics. IMPRESSION: Noncontrast MRI of the pelvis is most consistent with adenomyosis as supported by the publication cited below. Berto Tran al, MRI Characteristics of the Uterine Junctional Zone: From Normal to the Diagnosis of Adenomyosis, [employer] Journal of Roentgenology. 2011; 196: 1878-3956. [email or web address]://[email or web address].org/doi/full/[email or web address]
[2017-08-31] MEDS: Metoprolol Tartrate TAB* 25 MG PO SCH (21:57)
--- NOTE | 2017-09-01 07:41 | CONS ---
CONSULTATION REPORT: DATE OF CONSULT: 08/31/17 HOSPITAL PROVIDER: Dr. Arash Vasquez, who asked for the consultation. HISTORY OF PRESENT ILLNESS: Ms. Calderon is a 51-year-old, 2, para 2, who was admitted to the hospital with chest pain and was also noted to have severe iron- deficiency anemia and a history of abnormal bleeding. I was, therefore, asked to consult to evaluate her abnormal uterine bleeding. The patient stated that for the past year she has been having heavier cycles, lasting 4 to 6 days, with bleeding in between her periods along with severe menstrual cramping. She has known of her anemia for the past year and has been on iron supplementation. PAST MEDICAL HISTORY: Hypertension. PAST SURGICAL HISTORY: She had a previous section, a left total knee placement, and bilateral breast reduction. OBSTETRICAL HISTORY: She has two children, one born by and another one full-term spontaneous vaginal delivery. GYNECOLOGIC HISTORY: Unremarkable. She denies any history of fibroids, sexually transmitted diseases, or abnormal Pap smears. Her last Pap smear according to the patient was 2 years ago and was within normal limits. CURRENT MEDICATIONS: On admission from home: 1. Tylenol - she takes 650 mg tablets as needed p.r.n. pain. 2. She is on omeprazole 20 mg daily. 3. She is on Mucinex [600?] mg p.o. twice a day as needed. ALLERGIES: The patient has allergies to PENICILLIN and SULFA. FAMILY HISTORY: Her father is from myocardial infarction. Her brother has had a myocardial infarction. She has an older sister that is alive and well. Mother is alive and well. REVIEW OF SYSTEMS: The patient denied any active bleeding at the moment of her on admission. She denied abdominal pain, pelvic pain or pressure. No pain with intercourse. PHYSICAL EXAM: The patient is alert, awake, oriented x3. Her vital signs are stable. She is afebrile. Her abdomen is soft, nondistended, and nontender with normoactive bowel sounds. No hepatosplenomegaly and no palpable abdominal mass. Pelvic exam was deferred. DIAGNOSTIC STUDIES/LAB DATA: The patient had an ultrasound which I reviewed with Dr. Alicia, and the ultrasound is inconclusive as there are no obvious lesions within her uterus. After the ultrasound, she had an MRI of the pelvis and it is consistent with a possible diagnosis of adenomyosis. Please refer to the patient's laboratory studies as noted in her admission history and physical. IMPRESSION: This is a 51-year-old with menometrorrhagia, severe dysmenorrhea, with an MRI that is consistent with adenomyosis. Her clinical signs and symptoms are also suspicious for this diagnosis. I recommend the patient have an evaluation as an outpatient so that she can have an endometrial biopsy to r/ o other endmetrial pathology. I recommend a consultation with Dr. Dontrell Alicia of Interventional Radiology so that the patient and him can discuss the possibility of a uterine artery embolization to treat adenomyosis this is a viable alternative to the usual treatment which is a hysterectomy. The patient apparently will be treated with anticoagulation, so therefore hormonal treatment may not be feasible. I do not see a reason why her gynecologicsigns/ symptoms/findings should preclude her from having adequate cardiac care, including anticoagulation. Again, the patient can follow up with me as an outpatient. Please call if there are any other further concerns regarding this patient's gynecologic health. [id number]/[facility] #: [id number] [place]
[2017-09-01] MEDS ORDERED: Influenza VAC *QUAD* 2017-18* 0.5 ML SYRINGE IM ONE (09:00)
[2017-09-01] MEDS: Aspirin 81 mg CHEW TAB* 81 MG TAB.CHEW PO SCH (09:10)
[2017-09-01] MEDS: Metoprolol Tartrate TAB* 25 MG PO SCH ×4 (09:17→21:26)
--- NOTE | 2017-09-01 09:52 | PN ---
Subjective Date of Service: 09/01/17 Interval History: No more headache, no more chest pain. Patient only used 1 tampon so far which has not saturated yet. No new c/o. Family History: Findings - F age 58 [place], brother age 56 had [place]. Older sister A&W. Social History: Findings - , lives with her who is her SDM. Never smoked, no alcohol abuse. Past Medical History: Findings - L TKA, , BL breast reduction. 2 children. Objective Active Medications: Acetaminophen (Tylenol Tab*) 975 mg PO Q6H PRN PRN Reason: PAIN Last Admin: 08/31/17 21:57 Dose: 975 mg Aspirin (Aspirin Low Dose Tab*) 81 mg PO DAILY [facility] Last Admin: 09/01/17 09:10 Dose: 81 mg Atorvastatin Calcium (Lipitor*) 80 mg PO 1700 [facility] Last Admin: 08/31/17 16:51 Dose: 80 mg Metoprolol Tartrate (Lopressor Tab*) 25 mg PO QID [facility] Last Admin: 09/01/17 09:17 Dose: 25 mg Nitroglycerin (Nitroglycerin Tab 0.4 Mg*) 0.4 mg SL Q5M PRN PRN Reason: ANGINA Last Admin: 08/30/17 20:03 Dose: 0.4 mg Tramadol HCl (Ultram*) 50 mg PO Q6H PRN PRN Reason: PAIN Last Admin: 08/31/17 12:14 Dose: 50 mg Vital Signs - 8 hr 09/01/17 09/01/17 04:05 07:41 Temperature 98.0 F 97.3 F Pulse Rate 69 78 Respiratory 16 16 Rate Blood Pressure 109/49 134/77 (mmHg) O2 Sat by Pulse 99 96 Oximetry Oxygen Devices in Use Now: None Appearance: Alert, sitting up in bed. In good spirits. Looks comfortable. Eyes: No Scleral Icterus Neck: NL Appearance and Movements; NL JVP, No Thyroid Enlargement, Masses Respiratory: Symmetrical Chest Expansion and Respiratory Effort, Clear to Auscultation, Clear to Percussion Cardiovascular: NL Sounds; No Murmurs; No JVD, RRR, No Edema, - Extremities: No Edema, No Clubbing, Cyanosis, - Skin: No Rash or Ulcers, No Nodules or Sclerosis, - Neurological: Alert and Oriented x 3, NL Sensation Result Diagrams: 08/31/17 16:46 08/30/17 12:10 Additional Lab and Data: Lab Results 08/30/17 08/30/17 08/30/17 Range/Units 12:10 12:10 12:10 WBC 5.1 (3.5-10.8) 10^3/ul RBC 4.79 (4.0-5.4) 10^6/ul Hgb 7.8 L (12.0-16.0) g/dl Hct 27 L (35-47) % MCV 56 L (80-97) fL MCH 16 L (27-31) pg MCHC 29 L (31-36) g/dl RDW 22 H (10.5-15) % Plt Count 247 (150-450) 10^3/ul MPV 8.3 (7.4-10.4) um3 Neut % (Auto) 61.0 (38-83) % Lymph % (Auto) 25.3 (25-47) % Blaine % (Auto) 10.5 H (0-7) % Eos % (Auto) 2.1 (0-6) % Baso % (Auto) 1.1 (0-2) % Absolute Neuts (auto) 3.1 (1.5-7.7) 10^3/ul Absolute Lymphs (auto) 1.3 (1.0-4.8) 10^3/ul Absolute Monos (auto) 0.5 (0-0.8) 10^3/ul Absolute Eos (auto) 0.1 (0-0.6) 10^3/ul Absolute Basos (auto) 0.1 (0-0.2) 10^3/ul Absolute Nucleated RBC 0 10^3/ul Nucleated RBC % 0 Hypochromasia 1+ Microcytosis 2+ Hem Pathologist Commnt Pending INR (Anticoag Therapy) (0.77-1.02) D-Dimer, Quantitative (Less Than 230) ng/mL Sodium 135 L (139-145) mmol/L Potassium 3.9 (3.5-5.0) mmol/L Chloride 104 (101-111) mmol/L Carbon Dioxide 22 (22-32) mmol/L Anion Gap 9 (2-11) mmol/L BUN 10 (6-24) mg/dL Creatinine 0.71 (0.51-0.95) mg/dL Est GFR ( Amer) 111.6 (>60) Est GFR (Non-Af Amer) 86.8 (>60) BUN/Creatinine Ratio 14.1 (8-20) Glucose 199 H (70-100) mg/dL Lactic Acid 1.5 (0.5-2.0) mmol/L Calcium 9.3 (8.6-10.3) mg/dL Total Bilirubin 0.20 (0.2-1.0) mg/dL AST 18 (13-39) U/L ALT 17 (7-52) U/L Alkaline Phosphatase 73 (34-104) U/L Troponin I 0.01 (<0.04) ng/mL C-Reactive Protein 4.27 (< 5.00) mg/L Total Protein 7.3 (6.4-8.9) g/dL Albumin 4.1 (3.2-5.2) g/dL Globulin 3.2 (2-4) g/dL Albumin/Globulin Ratio 1.3 (1-3) Lipase 20 (11.0-82.0) U/L 08/30/17 08/30/17 Range/Units 12:10 14:51 WBC (3.5-10.8) 10^3/ul RBC (4.0-5.4) 10^6/ul Hgb (12.0-16.0) g/dl Hct (35-47) % MCV (80-97) fL MCH (27-31) pg MCHC (31-36) g/dl RDW (10.5-15) % Plt Count (150-450) 10^3/ul MPV (7.4-10.4) um3 Neut % (Auto) (38-83) % Lymph % (Auto) (25-47) % Blaine % (Auto) (0-7) % Eos % (Auto) (0-6) % Baso % (Auto) (0-2) % Absolute Neuts (auto) (1.5-7.7) 10^3/ul Absolute Lymphs (auto) (1.0-4.8) 10^3/ul Absolute Monos (auto) (0-0.8) 10^3/ul Absolute Eos (auto) (0-0.6) 10^3/ul Absolute Basos (auto) (0-0.2) 10^3/ul Absolute Nucleated RBC 10^3/ul Nucleated RBC % Hypochromasia Microcytosis Hem Pathologist Commnt INR (Anticoag Therapy) 0.90 (0.77-1.02) D-Dimer, Quantitative 362 H (Less Than 230) ng/mL Sodium (139-145) mmol/L Potassium (3.5-5.0) mmol/L Chloride (101-111) mmol/L Carbon Dioxide (22-32) mmol/L Anion Gap (2-11) mmol/L BUN (6-24) mg/dL Creatinine (0.51-0.95) mg/dL Est GFR ( Amer) (>60) Est GFR (Non-Af Amer) (>60) BUN/Creatinine Ratio (8-20) Glucose (70-100) mg/dL Lactic Acid (0.5-2.0) mmol/L Calcium (8.6-10.3) mg/dL Total Bilirubin (0.2-1.0) mg/dL AST (13-39) U/L ALT (7-52) U/L Alkaline Phosphatase (34-104) U/L Troponin I 0.06 H* (<0.04) ng/mL C-Reactive Protein (< 5.00) mg/L Total Protein (6.4-8.9) g/dL Albumin (3.2-5.2) g/dL Globulin (2-4) g/dL Albumin/Globulin Ratio (1-3) Lipase (11.0-82.0) U/L Assess/Plan/Problems-Billing Assessment: - Patient Problems (1) Iron deficiency anemia Current Visit: Yes Status: Acute Code(s): D50.9 - IRON DEFICIENCY ANEMIA, UNSPECIFIED SNOMED Code(s): 79849608 Comment: Iron sucrose 200 mg given. 1 U PRBC 08/31. Start ferrous sulfate 325 mg daily on 09/01. (2) Uterine bleeding Current Visit: Yes Status: Acute Code(s): N93.9 - ABNORMAL UTERINE AND VAGINAL BLEEDING, UNSPECIFIED SNOMED Code(s): 70019934 Comment: MRI pelvis w/o most consistent with adenomyosis. Discussed with Dr. Oviedo and Dr. Alicia. Pt could have uterine embolization in 2 weeks. Patient will need to see Dr. Oviedo or the eap counselor of her choice for an endometrial bx, and to see Dr. Alicia for uterine embolization (which could be done in 2 weeks). (3) ACS (acute coronary syndrome) Current Visit: Yes Status: Acute Code(s): I24.9 - ACUTE ISCHEMIC HEART DISEASE, UNSPECIFIED SNOMED Code(s): 037789767 Comment: ACS, peak troponin 0.67. Starting statin, BB 08/31; continue ASA. Discussed with Dr. Felipe 09/01. Load with 600 mg clopidogrel and discharge on 75 mg daily. Anticipate discharge 09/02 if she can walk in the [place]ardo without angina.
[2017-09-01] MEDS ORDERED: Aminophylline IV* 25 MG/ML 10 ML VIAL ONE (11:31)
[2017-09-01] MEDS ORDERED: Regadenoson* 0.4 MG/5 ML SYRINGE ONE (11:31)
--- NOTE | 2017-09-01 13:41 | RAD ---
Edited for charges. INDICATION: Hypertension, obesity, family history of heart disease. COMPARISON: No relevant prior exams available on the [facility] [place] for comparison. TECHNIQUE: 10.800 mCi of Tc-99m Myoview were administered IV. SPECT images of the heart were obtained. Later on the same day. Under the direction of Dr. Felipe, the patient was given an IV injection of a pharmacologic stress agent. Subsequently, the patient was given an IV injection of 26.200 mCi Tc-99m Myoview. SPECT images of the heart were obtained and a gated wall motion study was performed. FINDINGS: Gated wall motion images were obtained at stress and demonstrate hypokinesia at the inferior wall. The calculated left ventricular ejection fraction is 57 % at stress. Estimated LEFT ventricular end diastolic volume is 116 mL. TID 0.95. Based on review of the attenuation corrected and non corrected images the distribution of radiopharmaceutical within the myocardium on the stress and rest images is within normal limits. No fixed or reversible regions of hypoperfusion evident. IMPRESSION: 1. Hypokinesia at the inferior wall. Normal range estimated LEFT ventricular ejection fraction at stress. Borderline dilated LEFT ventricle. 2. No stress-induced ischemia or infarct evident. ASSESSMENT: Low risk based on nuclear portion Based on imaging criteria from ACC/AHA 2002 Guideline Update for the Management of Patients With Chronic Stable Angina Table 23. Noninvasive Risk Stratification. MTDD
[2017-09-01] MEDS: traMADol TAB* 50 MG PO PRN ×2 (13:47→21:24)
[2017-09-01] MEDS ORDERED: Clopidogrel TAB* 300 MG PO ONE (15:32)
[2017-09-01] MEDS: Ferrous Sulfate TAB* 325 MG PO SCH (17:01)
[2017-09-01] MEDS: Atorvastatin* 80 MG TAB PO SCH (17:01)
[2017-09-01] MEDS: Polyethylene Glycol 3350* 17 GM PACKET PO PRN (21:58)
[2017-09-01] MEDS: Docusate CAP* 100 MG PO SCH (21:58)
[2017-09-02] MEDS: traMADol TAB* 50 MG PO PRN ×2 (04:21→10:44)
[2017-09-02] MEDS: Ferrous Sulfate TAB* 325 MG PO SCH (08:54)
[2017-09-02] MEDS: Polyethylene Glycol 3350* 17 GM PACKET PO PRN (08:54)
[2017-09-02] MEDS: Aspirin 81 mg CHEW TAB* 81 MG TAB.CHEW PO SCH (08:55)
[2017-09-02] MEDS: Docusate CAP* 100 MG PO SCH (08:55)
[2017-09-02] MEDS: Acetaminophen TAB* 325 MG PO PRN (08:55)
[2017-09-02] MEDS ORDERED: Clopidogrel TAB* 75 MG PO SCH (09:00)
[2017-09-02] MEDS ORDERED: Metoprolol Succinate XL TAB* 100 MG PO SCH (09:00)
[2017-09-02 11:25] VITALS: BP 143/87
[2017-09-02 11:41] LABS: Hematocrit 30 % (35-47); Hemoglobin 8.6 g/dl (12.0-16.0); Mean Corpuscular HGB Conc 29 g/dl (31-36); Mean Corpuscular Hemoglobin 17 pg (27-31); Mean Corpuscular Volume 60 fL (80-97); Mean Platelet Volume 8.7 um3 (7.4-10.4); Platelet Count 239 10^3/ul (150-450); Red Blood Count 4.97 10^6/ul (4.0-5.4); Red Cell Distribution Width 23 % (10.5-15)
--- NOTE | 2017-09-03 01:49 | DS ---
ADDENDUM NOW INCLUDED ON THIS REPORT CC: Dr. Oviedo; Dr. Felipe * DISCHARGE SUMMARY: DATE OF ADMISSION: 08/30/17 DATE OF DISCHARGE: 09/02/17 PRINCIPAL DISCHARGE DIAGNOSES: 1. Non-ST segment elevation myocardial infarction. 2. Dysfunctional uterine bleeding secondary to adenomyosis. SECONDARY DISCHARGE DIAGNOSIS: Microcytic anemia. BRIEF HOSPITAL COURSE BY PROBLEM: 1. NSTEMI. Ms. Calderon presented to the emergency department with exertional chest pain. Her EKG at the time of admission did not show ischemic changes; however, her troponin was positive at 0.06 and continued to rise to 0.67. She was evaluated by Cardiology who were concerned for acute coronary syndrome given the trend of her troponins and her chest pain; however, did not perform a left heart cath given her microcytic anemia and possible need for dual- antiplatelet therapy. They recommended a nuclear stress test, which showed hypokinesia at the inferior wall, normal LV ejection fraction at stress, and borderline dilated LV with no stress-induced ischemia or infarct evident. This was assessed as a low-risk stress test. After the stress test and further evaluation, Cardiology ultimately decided that she should be managed medically and that she should undergo further treatment for her dysfunctional uterine bleeding before a left heart catheterization. She is being discharged on aspirin, Plavix, metoprolol, and atorvastatin and to have a followup appoint- ment scheduled with Dr. Root on 09/11/17 at 3:20 p.m. She was instructed to return to the emergency department should any further chest pain develop. 2. Acute on chronic microcytic anemia due to dysfunctional uterine bleeding and adenomyosis. Her admission hemoglobin was 7.8 and in the setting of exertional chest pain, she received 1 unit of packed red blood cells. Her hemoglobin responded appropriately and theresa to 9.0 and on the day of discharge her hemoglobin is 8.6. She was severely microcytic and a pelvic MRI showed pelvic adenomyosis. Dr. Oviedo was consulted who recommends followup in his office for an endometrial biopsy and uterine fibroid embolization was discussed both with Dr. Oviedo, Dr. Alicia and Dr. Root and after her endometrial biopsy, she will be referred to Dr. Alicia if this is still appropriate for a UFE. Ms. Calderon is in agreement with this plan and has been given a discharge followup appointment with Dr. Alicia on 09/13/17 and is also recommended to follow up with Dr. Oviedo at the time of discharge. 3. Microcytic anemia. She received a dose of IV iron while admitted and is being discharged on daily ferrous sulfate. DISPOSITION: Ms. Calderon is discharged to home on 09/02/17. She is able to walk 6 laps in the hallway without chest pain or shortness of breath. Her discharge hemoglobin is 8.6 and she has followup appointment scheduled with Dr. Alicia and Dr. Root, and she is instructed to schedule an appointment with Dr. Oviedo as well. She is instructed to return to the emergency department with any chest pain, shortness of breath, diaphoresis, syncope, or other unusual symptoms. ADDENDUM: PHYSICAL EXAMINATION: At the time of discharge; temperature 97.6, heart rate 70 , pulse ox 100% on room air, blood pressure 143/87. General: Alert, well- appearing female, in no distress. HEENT: Pupils equal, round and reactive to light. Conjunctival pallor. No mucosal erythema or exudates. Neck: No cervical lymphadenopathy. No JVP. Chest: Regular rate and rhythm. No murmurs. PMI is nondisplaced. Lungs are clear bilaterally. Abdomen: Soft, nontender, nondistended. No CVA tenderness. Extremities: No edema. No rashes. No ulcers. She is able to walk the hallways without chest pain or dyspnea. [id number]/[facility]PS #: [id number] A- [id number]/CPS #: [id number] [facility]
--- NOTE | 2017-09-03 02:22 | DS ---
ADDENDUM: PHYSICAL EXAMINATION: At the time of discharge; temperature 97.6, heart rate 70 , pulse ox 100% on room air, blood pressure 143/87. General: Alert, well- appearing female, in no distress. HEENT: Pupils equal, round and reactive to light. Conjunctival pallor. No mucosal erythema or exudates. Neck: No cervical lymphadenopathy. No JVP. Chest: Regular rate and rhythm. No murmurs. PMI is nondisplaced. Lungs are clear bilaterally. Abdomen: Soft, nontender, nondistended. No CVA tenderness. Extremities: No edema. No rashes. No ulcers. She is able to walk the hallways without chest pain or dyspnea. [id number]/[facility] #: [id number] [facility]IT[facility]
== END 2017-09-02 13:10 | disposition home or self-care (01) | DRG 190 ==
LOC: ED 11:39 → MEDTELE 16:38 → OBSVTOIN 08-31 10:00
PROVIDERS: ADMIT Internal Medicine; ATTEND Internal Medicine
PROC: 30233N1 Transfusion of Nonautologous Red Blood Cells into Peripheral Vein, Percutaneous Approach (ICD-10-PCS; principal; 2017-08-31)
PROC: 4A12XM4 Monitoring of Cardiac Stress, External Approach (ICD-10-PCS; 2017-09-01)
DX: I21.4 Non-ST elevation (NSTEMI) myocardial infarction (principal); D62 Acute posthemorrhagic anemia; N80.0 Endometriosis of uterus; N93.8 Other specified abnormal uterine and vaginal bleeding; H53.149 Visual discomfort, unspecified; I10 Essential (primary) hypertension; Z96.652 Presence of left artificial knee joint; N94.6 Dysmenorrhea, unspecified; E66.9 Obesity, unspecified; I24.9 Acute ischemic heart disease, unspecified; N92.1 Excessive and frequent menstruation with irregular cycle; Z68.36 Body mass index [BMI] 36.0-36.9, adult; Z41.1 Encounter for cosmetic surgery; Z82.49 Family history of ischemic heart disease and other diseases of the circulatory system; Z72.89 Other problems related to lifestyle; Z88.0 Allergy status to penicillin; Z88.2 Allergy status to sulfonamides
CPT/HCPCS: 36415; 70450; 70496; 70498; 71045; 71275; 72195; 76830; 78452; 80053; 80061; 83036; 83605; 83690; 84484; 85025; 85027; 85060; 85379; 85610; 86140; 86850; 86900; 86901; 86922; 90686; 93005; 93017; 93306; 99283; A9270-GY; A9502; C8929; G0378; J0280; J1170; J1756; J2270; J2405; J2785; P9016; Q9967

== ENCOUNTER 2017-09-04 14:27 | Emergency (ER) | payer BC ==
[2017-09-04 15:40] LABS: ABS Basophils 0.1 10^3/ul (0-0.2); ABS Eosinophils 0.2 10^3/ul (0-0.6); ABS Lymphocytes 1.3 10^3/ul (1.0-4.8); ABS Monocytes 0.3 10^3/ul (0-0.8); ABS Neutrophils 3.3 10^3/ul (1.5-7.7); ABS Nucleated RBC 0 10^3/ul; Eosinophil % 3.6 % (0-6); Hematocrit 30 % (35-47); Hemoglobin 8.8 g/dl (12.0-16.0); Lymphocyte % 25.3 % (25-47); Mean Corpuscular HGB Conc 29 g/dl (31-36); Mean Corpuscular Hemoglobin 18 pg (27-31); Mean Corpuscular Volume 62 fL (80-97); Mean Platelet Volume 8.4 um3 (7.4-10.4); Nucleated Red Blood Cells % 0.2; Platelet Count 260 10^3/ul (150-450); Red Blood Count 4.88 10^6/ul (4.0-5.4); Red Cell Distribution Width 23 % (10.5-15); White Blood Count 5.2 10^3/ul (3.5-10.8)
--- NOTE | 2017-09-04 15:51 | RAD ---
Indication: Chest pain. 2 views of the chest demonstrate no mediastinal shift. Heart is of normal size and configuration. Lung arana appear clear. IMPRESSION: No active cardiopulmonary disease is noted.
[2017-09-04 15:55] LABS: Urine Appearance Clear; Urine Blood Negative (Negative); Urine Color Yellow; Urine Ketones Trace (Negative); Urine Protein Negative (Negative); Urine Specific Gravity 1.029 (1.010-1.030); Urine Urobilinogen Positive (Negative)
[2017-09-04 16:12] LABS: EGFR Non-African American 85.1 (>60)
[2017-09-04] MEDS ORDERED: Iohexol 350* (CONTRAST) 500 ML MDV IV ONE (17:59)
--- NOTE | 2017-09-04 18:27 | RAD ---
INDICATION: Chest pain. Short of breath. Evaluate for pulmonary embolus. The d-dimer is 318. COMPARISON: Chest x-ray September 04, 2017; CTA chest August 30, 2017 TECHNIQUE: Axial source images were obtained from the thoracic inlet to the hemidiaphragms following administration of a [address] angiographic technique was utilized. Coronal and sagittal reconstructed images were acquired. CHEST FINDINGS: Neck/thyroid: The visualized neck to include the thyroid appear normal. Chest wall: There are no acute abnormalities of the bony thorax or chest wall. There is no supraclavicular, infraclavicular, or axillary lymphadenopathy. Lungs : There are no pulmonary parenchymal masses or infiltrates. The pulmonary interstitium appears normal. There are no endobronchial lesions. Cardiomediastinal structures: There is no CT evidence of acute pulmonary embolic disease. The heart is normal in size. There is no pericardial effusion. There is no evidence of aortic aneurysm or dissection. There is no mediastinal or hilar adenopathy. The esophagus appears normal. Pleura : There are no pleural-based masses or effusions. Other: None. IMPRESSION: NO CT EVIDENCE OF ACUTE PULMONARY EMBOLIC DISEASE. LUNGS CLEAR. NO INTERVAL CHANGE SINCE AUGUST 30, 2017
[2017-09-04 18:45] VITALS: BP 138/84
--- NOTE | 2017-09-08 08:00 | ED ---
Mic Huitron Angela, scribed for Raymond Ware MD on 09/04/17 at 1507 . Shortness of Breath - HPI Summary HPI Summary: This pt is a 52 y/o female presenting to [facility] c/o SOB today. Pt reports she didn't feel well this morning and had SOB with minimal exertion. She states she has difficulty catching her breath. Denies chest pain, calf tenderness. She notes she was admitted to [facility] for ACS and severe anemia, and was recently discharged 2 days ago. Pt also had a transfusion 4 days ago. She reports she had anemia from her heavy periods over some time. Pt had a chemical stress test. - History of Current Complaint Chief Complaint: EDShortnessOfBreath Time Seen by Provider: 09/04/17 14:45 Hx Obtained From: Patient Onset/Duration: Lasting Hours, Still Present Dyspnea At: Exertion - minimal Aggrevating Factors: Nothing Alleviating Factors: Nothing Associated Signs & Symptoms: Negative - Allergy/Home Medications Allergies/Adverse Reactions: Allergies Allergy/AdvReac Type Severity Reaction Status Date / Time Penicillins Allergy Rash Verified 09/04/17 14:38 Sulfa (Sulfonamide Allergy Rash Verified 09/04/17 14:38 Antibiotics) PMH/Surg Hx/FS Hx/Imm Hx Endocrine/Hematology History: Denies: Hx Diabetes, Hx Thyroid Disease Cardiovascular History: Reports: Hx Angina, Hx Hypertension Denies: Hx Coronary Artery Disease, Hx Hypercholesterolemia, Hx Myocardial Infarction, Hx Pacemaker/ICD, Hx Syncope, Hx Valvular Heart Disease Respiratory History: Denies: Hx Asthma, Hx Chronic Obstructive Pulmonary Disease (COPD) GI History: Denies: Hx Crohn's Disease, Hx Diverticulosis History: Denies: Hx Dialysis, Hx Renal Disease Musculoskeletal History: Denies: Hx Arthritis, Hx Osteoporosis Sensory History: Denies: Hx Contacts or Glasses, Hx Hearing Aid Opthamlomology History: Denies: Hx Contacts or Glasses Neurological History: Reports: Hx Headaches Psychiatric History: Denies: Hx Attention Deficit Hyperactivity Disorder, Hx Panic Disorder - Surgical History Surgery Procedure, Year, and Place: breast reduction 1993; left knee arthroscopic 1987 and 1988 then partial knee replacement 2003 and total knee replacement 2014; Infectious Disease History: Denies: Hx Clostridium Difficile, Hx Hepatitis, Hx Human Immunodeficiency Virus (HIV), Hx of Known/Suspected MRSA, Hx Shingles, Hx Tuberculosis, Hx Known/ Suspected VRE, Hx Known/Suspected VRSA, History Other Infectious Disease - Family History Known Family History: Positive: Hypertension - Social History Alcohol Use: Weekly Substance Use Type: Reports: None Hx Tobacco Use: No Smoking Status (MU): Never Smoked Tobacco Review of Systems Negative: Fever, Chills Negative: Chest Pain Positive: Shortness Of Breath Negative: Edema, Other - calf tenderness Skin: Negative Neurological: Negative All Other Systems Reviewed And Are Negative: Yes Physical Exam - Summary Physical Exam Summary: VITAL SIGNS: Reviewed. GENERAL: Patient is a well-developed and nourished female who is lying comfortable in the stretcher. Patient is not in any acute respiratory distress. HEAD AND FACE: No signs of trauma. No ecchymosis, hematomas or skull depressions. No sinus tenderness. EYES: PERRLA, EOMI x 2, No injected conjunctiva, no nystagmus. EARS: Hearing grossly intact. Ear canals and tympanic membranes are within normal limits. MOUTH: Oropharynx within normal limits. NECK: Supple, trachea is midline, no adenopathy, no JVD, no carotid bruit, no c- spine tenderness, neck with full ROM. CHEST: Symmetric, no tenderness at palpation LUNGS: Clear to auscultation bilaterally. No wheezing or crackles. CVS: Regular rate and rhythm, S1 and S2 present, no murmurs or gallops appreciated. ABDOMEN: Soft, non-tender. No signs of distention. No rebound no guarding, and no masses palpated. Bowel sounds are normal. EXTREMITIES: FROM in all major joints, no edema, no cyanosis or clubbing. NEURO: Alert and oriented x 3. No acute neurological deficits. Speech is normal and follows commands. SKIN: Dry and warm Triage Information Reviewed: Yes Vital Signs On Initial Exam: Initial Vitals Pulse Resp BP Pulse Ox 81 18 158/77 99 09/04/17 14:38 09/04/17 14:38 09/04/17 14:38 09/04/17 14:38 Vital Signs Reviewed: Yes Diagnostics - Vital Signs Vital Signs Pulse Resp BP Pulse Ox 09/04/17 14:38 81 18 158/77 99 - Laboratory Result Diagrams: 09/04/17 15:20 09/04/17 15:20 Lab Statement: Any lab studies that have been ordered have been reviewed, and results considered in the medical decision making process. - Radiology Chest XR Xray Interpretation: No Acute Changes - IMPRESSION: No active cardiopulmonary disease is noted. Dr. Ware has reviewed this radiology report. Radiology Interpretation Completed By: Radiologist - CT CTA Chest CT Interpretation: No Acute Changes - IMPRESSION: No CT evidence of acute pulmonary embolic disease. Lungs clear. No interval change since August 30, 2017. Dr. Ware has reviewed this radiology report. CT Interpretation Completed By: Radiologist - EKG 15:26 Cardiac Rate: NL EKG Rhythm: Sinus Rhythm - at 72 bpm EKG Interpretation: No ST elevation. Re-Evaluation - Re-Evaluation First Eval Re-Evaluation Time: 18:29 Comment: I reviewed the lab, XR and CTA results with the pt. Pt will be discharged to home. Course/Dx - Course Assessment/Plan: This pt is a 52 y/o female presenting to [facility] c/o SOB today. Pt reports she didn't feel well this morning and had SOB with minimal exertion. She states she has difficulty catching her breath. Denies chest pain, calf tenderness. She notes she was admitted to [facility] for ACS and severe anemia, and was recently discharged 2 days ago. Pt also had a transfusion 4 days ago. She reports she had anemia from her heavy periods over some time. Pt had a chemical stress test. Test results without any significant abnormalities except for D-dimer of 318, glucose of 194, troponin 1 of 0.06 and second troponin of 0.07. Chest XR shows no active cardiopulmonary disease is noted. EKG shows no ST elevations. Since the D-dimer is elevated, a chest CTA was ordered to rule out a PE. CTA Chest reveals no CT evidence of acute pulmonary embolic disease. Lungs clear. No interval change since August 30, 2017. CTA is negative for PE. Therefore she will be discharged to home with follow up from her PCP. I discussed all the findings and test results with the patient. All questions were answered to patient satisfaction. There were no further complaints or concerns. She is instructed to return to the ED for any worsening or new symptoms. Pt is hemodynamically stable, alert and oriented x3. - Diagnoses Provider Diagnoses: Dyspnea Discharge - Sign-Out/Discharge Documenting (check all that apply): Discharge - discharge to home - Discharge Plan Condition: Stable Disposition: HOME Patient Education Materials: Dyspnea (ED) Referrals: Eliana Yap NP [Primary Care Provider] - 3 Days Additional Instructions: Please follow up with your primary care provider. RETURN TO THE ED FOR ANY NEW OR WORSENING SYMPTOMS. The documentation as recorded by the Mic almeida Angela accurately reflects the service I personally performed and the decisions made by , Raymond Ware MD.
== END 2017-09-04 18:44 | disposition home or self-care (01) ==
LOC: ED 14:27
DX: R06.02 Shortness of breath (principal); R06.00 Dyspnea, unspecified
CPT/HCPCS: 36415; 71046; 71275; 80053; 81003; 82553; 83880; 84484; 85025; 85379; 86140; 93005; 99283; Q9967

== ENCOUNTER 2017-09-21 10:55 | Observation (INO) | payer BC ==
[2017-09-21] MEDS ORDERED: Naproxen TAB* 250 MG ONE (11:21)
[2017-09-21] MEDS ORDERED: Scopolamine 1.5 mg* PATCH ONE (11:21)
[2017-09-21] MEDS ORDERED: Ondansetron INJ* 2 MG/ML VIAL ONE (11:21)
[2017-09-21] MEDS ORDERED: oxyCODONE SR TAB(*) 10 MG TAB.SR ONE (11:22)
[2017-09-21] MEDS ORDERED: LORazepam TAB(*) 1 MG ONE (11:22)
[2017-09-21] MEDS ORDERED: Clindamycin 900 MG IVPREMIX(* 900 MG/50 ML SDV IV ONE (12:00)
[2017-09-21] MEDS ORDERED: Heparin 2 UNITS/ML IVPREMIX* 2,000 ML IV ONE (12:36)
[2017-09-21] MEDS ORDERED: Iohexol 350 (CONTRAST) 200 ML MDV IV ONE (12:37)
[2017-09-21] MEDS ORDERED: Lidocaine 1% INJ* 10 MG/ML 30 ML SDV ONE (12:37)
[2017-09-21] MEDS ORDERED: Ketorolac INJ* 30 MG/ML 1 ML VIAL ONE ×2 (12:41→14:05)
[2017-09-21] MEDS ORDERED: nitroGLYCERIN DRIP* 25,000 MCG/250 ML BTL ONE (12:41)
[2017-09-21] MEDS ORDERED: Midazolam* 1 MG/ML 10 ML VIAL (10 MG) ONE (12:41)
[2017-09-21] MEDS ORDERED: fentaNYL* 50 MCG/ML 5 ML VIAL (250 MCG VIAL) ONE (12:41)
[2017-09-21] MEDS ORDERED: Flumazenil* 0.1 MG/ML 5 ML MDV ONE (13:02)
[2017-09-21] MEDS ORDERED: Naloxone* 0.4 MG/ML 1 ML VIAL ONE (13:02)
[2017-09-21] MEDS ORDERED: HYDROmorphone PCA* 20 MG/20 ML PCA.SYRING ONE (15:17)
--- NOTE | 2017-09-21 16:44 | RAD ---
CPT II Codes: G9500 Procedure(s) performed: * Pelvic arteriogram including the bilateral common and internal iliac arteries. * Catheter arteriography of the bilateral uterine arteries. * Catheter embolization of the bilateral uterine arteries. Date of service: September 21, 2017 Indication for procedure: Heavy menstrual bleeding and pelvic pain with MRI symptoms consistent with adenomyosis. Comparison: Noncontrast MRI of the pelvis August 31, 2017. Contrast: 100 mL Omnipaque 300 Fluoroscopy Time: 26.6 minutes Vessels Accessed: Percutaneous access was obtained with ultrasound guidance in the right common femoral artery in the retrograde direction towards the heart. Catheter arteriography was performed with the catheter tip in the following arteries: Right external iliac artery, Left common iliac arteries, Bilateral internal iliac arteries and Bilateral uterine arteries. Anesthesia: Conscious sedation with IV Fentanyl and Versed as well as local 1% lidocaine injected locally at the arteriotomy site. Conscious sedation time: Timeout: 1259 hours Case end: 1510 hours Total conscious sedation time: 2 hours and 11 minutes Additional medications: * 400 mcg IA nitroglycerin injected intermittently throughout the course of the procedure to alleviate arterial spasm. * Intra-arterial Toradol, 15 mg injected into each uterine artery, for a total of 30 mg intra-arterial. * Intravenous Toradol, 20 mg. * Prior to the procedure the patient received: Ativan 1 mg p.o. Naproxen sodium 250 mg p.o. OxyContin 10 mg p.o. Scopolamine patch 1.5 mg transdermal applied to the mastoid process. Zofran 4 mg IV Antibiotic prophylaxis was provided by Clindamycin 900 mg IV PROCEDURE NOTE AND INTRAPROCEDURAL IMAGING FINDINGS: Immediately prior to the procedure the patient signed consent after thoroughly discussing all risks and benefits. The patient was positioned on the fluoroscopy table in the supine position and the bilateral groins were shaved, prepped and draped in standard sterile fashion. Using fluoroscopic imaging the location of the right common femoral head was marked externally with a skin marker on the patient's groin. Utilizing sonographic guidance and palpation the right common femoral artery was cannulated overlying the right femoral head with an 21-gauge needle. An ultrasound image was saved. A microwire was slowly and smoothly advanced to the aortic bifurcation under fluoroscopic imaging. No buckling of the wire was visualized to indicate dissection. Over the wire a 5-[place] catheter was advanced into the artery, the inner stiffener removed and the microwire was replaced with a 0.035" Bentsen wire which was advanced into the aorta. Finally the 5 [place] catheter was exchanged for a 5 [place] sidearm sheath. Through the side arm of the percutaneous access sheath and arteriogram was performed with the tip of the catheter at the right external iliac artery demonstrating appropriate percutaneous access of the right common femoral artery below the branch point of the epigastric artery and above the femoral bifurcation. Utilizing a 0.035" wire and 5-S[place] C2 catheter the contralateral left common iliac artery was accessed. The wire was advanced under fluoroscopic control to the proximal left superficial femoral artery. The C2 catheter was removed and over the wire a 5 [place] Merit Impress catheter was advanced over the iliac bifurcation and the reverse curve was formed in the lower abdominal aorta. Utilizing the reverse curve catheter and the wire the ipsilateral right common iliac artery was selected. With the tip of the catheter in the proximal most portion of the right internal iliac artery, angiography was performed to detail the branches of the right internal iliac artery and to locate the ostium of the right uterine artery. Arteriograms in multiple oblique projections were performed to best discern the branch point of the uterine artery. The uterine artery was selected and cannulated utilizing the combination 0.035" wire and 5-[place] catheter. In order to ensure maximum arterial inflow for the purpose of particle distribution, a microcatheter and wire system were advanced into the 5-[place] catheter securing access into the uterine artery. Under careful fluoroscopic control access was maintained in the uterine artery while pushing back the 5-[place] catheter until the tip resided more superiorly in the internal iliac artery. Prior to embolization, contrast injection into the horizontal portion of the uterine artery demonstrated no large, obvious collateral blood flow to the ovary or a definite cervicovaginal branch descending inferiorly. Intra-arterial nitroglycerin was injected intermittently to alleviate arterial spasm. Under fluoroscopic control approximately ~3/4 vial Cook Polyvinyl Alcohol (200) particles were slowly injected into the right uterine artery to near complete stasis. Towards the end of embolization 15 mg of Toradol was injected intra-arterially. The microcatheter was pulled back into the more proximal descending portion of the uterine artery and contrast angiography depicted near complete stasis of the uterine artery. The microcatheter and microwire were removed. Contrast arteriography through the 5-[place] catheter in the right internal iliac artery demonstrated patency and brisk flow through all branches of the internal iliac artery with the exception of the right uterine artery which demonstrates near complete stasis. The 0.035" wire was reinserted into the 5-[place] catheter and the system was utilized to access the contralateral left internal iliac artery. With the tip of the 5 [place] Merit Impress catheter in the proximal most portion of the left internal iliac artery, angiography was performed to detail the branches of the left internal iliac artery and to locate the ostium of the left uterine artery. Arteriograms in multiple oblique projections were performed to best discern the branch point of the uterine artery. The uterine artery was selected and cannulated utilizing the combination 0.035" wire and 5-[place] catheter. In order to ensure maximum arterial inflow for the purpose of particle distribution, the microcatheter and wire system were advanced into the 5-[place] catheter securing access into the uterine artery. Under careful fluoroscopic control access was maintained in the uterine artery while pushing back the 5-[place] catheter until the tip resided more superiorly in the internal iliac artery. Prior to embolization, contrast injection into the horizontal portion of the left uterine artery demonstrated no large, obvious collateral blood flow to the ovary or a definite cervicovaginal branch descending inferiorly. Intra-arterial nitroglycerin was injected intermittently to alleviate arterial spasm. Under fluoroscopic control the remaining 1/4 vial Cook Polyvinyl Alcohol (200) particles and ~1/3 vial Embospheres 500-700 um were slowly injected into the left uterine artery to near complete stasis. Towards the end of embolization 15 mg of Toradol was injected intra-arterially. The microcatheter was pulled back into the more proximal descending portion of the uterine artery and contrast angiography depicted near complete stasis of the uterine artery. The microcatheter and microwire were removed. Contrast arteriography through the 5-[place] catheter in the left internal iliac artery demonstrated patency and brisk flow through all branches of the internal iliac artery with the exception of the left uterine artery which demonstrates near complete stasis. The 5-[place] catheter and 0.035" wire were utilized to access the left external iliac artery which allowed a safe removal of the 5-S[place] Arabian Impress catheter. The wire was then removed from the sheath. Through the side arm of the percutaneous access sheath and arteriogram was performed with the tip of the catheter at the right external iliac artery demonstrating appropriate percutaneous access of the right common femoral artery below the branch point of the epigastric artery and above the femoral bifurcation. Due to the patient receiving antiplatelet therapy the arteriotomy was closed with a percutaneous closure device. Under fluoroscopic control the arteriotomy was sealed with a 5-S[place] Arabian Minx closure device. Following successful deployment of the closure device, pressure was held at the common femoral arteriotomy for approximately 15 minutes. There were no signs of bleeding at the right groin access site and the site was dressed with sterile gauze and Tegaderm. The patient tolerated the procedure well and was transferred to the PACU in stable condition with routine interventional radiology protocol pain and nausea control. SUMMARY OF PROCEDURE, IMAGING FINDINGS AND INTERVENTIONS PERFORMED: 1. Diagnostic studies performed: * Arterial access was obtained at the right common femoral artery in the retrograde direction (i.e. towards the heart) with ultrasound guidance. A sonographic image was recorded. * Diagnostic catheter angiography (necessary to perform the appropriate interventions) was performed with the catheter tip in the right external iliac artery, left common iliac arteries, bilateral internal iliac arteries and bilateral uterine arteries. * Catheter arteriography was performed of the inferior most abdominal aorta, bilateral iliac arterial system and specifically the bilateral uterine arteries. 2. Interpretation of diagnostic studies performed: * Mildly hypertrophied bilateral uterine arteries, slightly larger on the right than the left. 3. Surgical interventions performed: * Near stasis embolization of the bilateral uterine arteries utilizing a total of 1 vial Cook PVA-200 and approximately 1/3 vial Embospheres 500-700 um.. 4. Interpretation of interventions performed: * Final arteriography demonstrated near complete stasis of the bilateral uterine arteries.. PLAN: 1. After immediate post embolization care in the PACU, the patient will be admitted to short stay surgical unit by the hospitalist service for routine overnight observation including pain and nausea control. 2. Outpatient clinical and imaging follow-up according to the Interventional Radiology protocol.
--- NOTE | 2017-09-21 17:21 | PN ---
Progress Note - Progress Note Date of Service: 09/21/17 SOAP: Subjective: Patient reports 0/10 pain and no nausea or emesis. Sips of ice water without issue. Manzano bag with clear yellow urine. 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 Plan: 1. Standard Interventional Radiology post [place] protocol. 2. Medical and cardiac care per admitting hospitalists. 3. Patient may sit up and ambulate at 1930 hours. 4. Slowly advance diet.
[2017-09-21] MEDS ORDERED: Naloxone* 0.4 MG/ML 1 ML VIAL IV PUSH PRN (19:15)
[2017-09-21] MEDS: NS 0.9% 1000 ML* 1,000 ML IVPB SCH (19:26)
--- NOTE | 2017-09-21 19:45 | HP ---
CC: Dontrell Alicia MD * ADMISSION HISTORY AND PHYSICAL: DATE OF ADMISSION: 09/21/17 CONSULTING PHYSICIAN: Dontrell Alicia MD MY ATTENDING PHYSICIAN TODAY: Arash Vasquez MD.* (DICTATED BY SARAH PASTOR NP) HISTORY OF PRESENT ILLNESS: This is a very pleasant 52-year-old female patient who was admitted to the hospital back on 08/30/17 for having a bout with chest pain. The patient was admitted for chest pain, rule out ACS. During that admission, she was noted to be severely anemic with a hemoglobin of 7.4 and hematocrit of around 14. The patient had persistent headache and chest pain, fatigue, was being set up for cardiac stress test; however, she did have positive troponins on that admission. The patient was seen by Cardiology who determined that the patient should have followup cardiac care and possibly cardiac cath; however, the patient's source of bleeding for her very profound anemia was vaginal bleeding secondary to adenomyosis. The patient was seen during that admission by Dr. John Oviedo. After her cardiac workup was completed during that admission, she was referred to Dr. Dontrell Alicia for a possible uterine artery embolization. She has actually undergone that procedure today. The patient was seen in the PACU. She is well appearing. Her is at the bedside. She is not complaining of any fever, fatigue, or chills. She has no headache. She has no chest pain, no shortness of breath, no nausea or vomiting, no abdominal pain, and no further constitutional complaints. PAST MEDICAL HISTORY: Significant for NSTEMI in August, dysmenorrhea, hypertension and osteoarthritis. PAST SURGICAL HISTORY: Significant for left total knee arthroplasty, , and bilateral breast reduction. MEDICATIONS: At home include: 1. Amlodipine 2.5 mg 1 tablet daily. 2. Baby aspirin 81 mg daily. 3. Atorvastatin 80 mg daily. 4. Plavix 75 mg daily. 5. Ferrous sulfate 325 mg daily. 6. Metoprolol succinate XL 100 mg p.o. daily. ALLERGIES: The patient has allergies to PENICILLIN, SULFA, and VANCOMYCIN all of which cause rash. FAMILY HISTORY: Father with an HI who passed at age 58, a brother at age 56 who had an HI, and an older sister with no specific comorbidities. SOCIAL HISTORY: The patient does not smoke and has never. Does not drink alcohol. Denies any illicit drug use. She is . Lives at home with her . Her is her medical healthcare proxy. REVIEW OF SYSTEMS: A 10-point review of systems is negative except as noted in the HPI. PHYSICAL EXAMINATION GENERAL: The patient is awake, alert, in no acute distress, well appearing. VITAL SIGNS: Blood pressure 139/79, heart rate 65, respiratory rate 16, satting at 98% on room air, temperature 98.8. HEENT: The patient is atraumatic, normocephalic. PERRLA with nonicteric sclerae. Oral mucosa is mildly dry. NECK: Supple, nontender. No JVD noted. No carotid bruits auscultated. LUNGS: Clear bilaterally to auscultation with no adventitious breath sounds. CARDIOVASCULAR: S1, S2 are present. Rate and rhythm are regular. She has regular sinus rhythm on telemetry with no ectopy. There are no murmurs, gallops , or rubs noted. ABDOMEN: Soft, nontender, nondistended. Hypoactive bowel sounds noted. No organomegaly appreciated. : She has a Manzano catheter draining clear yellow urine. MUSCULOSKELETAL: There is no clubbing, no cyanosis, no edema. She has positive distal pulses palpable at +2. She is currently not ambulatory having just had surgery, but she does have full range of motion and gross motor and sensation intact. NEUROLOGIC: She is grossly intact with no focal deficits. PSYCHIATRIC: She is cooperative and appropriate. LABORATORY DATA: No labs have been drawn yet today. Beta quant is 0.60. At her last preoperative labs dated 09/04/17, WBCs were 5.2, red blood cells 4.88, hemoglobin 8.8, hematocrit 30, MCV 62, MCH 18, MCHC 29, RDW 23, platelets 260. INR 0.90. Sodium 138, potassium 4.3, chloride 104, CO2 25, BUN 16, creatinine 0.72, GFR 85.1, glucose 194. Hemoglobin A1c is 6.9. Lactic acid 1.5. Calcium 9.5. Bilirubin 0.30, AST 20, ALT 18, alk phos 74. CK-MB is 1.9. CRP was 4.29. Triglycerides 118, cholesterol 130, LDL cholesterol 79, HDL cholesterol 27.6. Lipase is 20. IMPRESSION: This is a 52-year-old female patient with recent history of non-ST - elevation myocardial infarction, anemia, and vaginal bleeding who presents today for uterine artery embolization procedure with Dr. Dontrell Alicia. PLAN: The patient has been admitted to medical service. Primary plan of care will be as per Dr. Alicia including pain management, fluid management, and diet. The patient is currently on a PALLIATIVE CARE NURSE pump that will remain. For her cardiac issues, the patient states she took all of her medications this morning. She will be continued on her home meds including her aspirin, Plavix, amlodipine, metoprolol, and ferrous sulfate. We also recommend that the patient remain on telemetry for the duration of her visit being that she had recent cardiac events. We will monitor her hemoglobin and hematocrit and monitor her vital signs in particular her heart rate on telemetry. The rest of the patient's course will be determined by further diagnostics, laboratories, and any other input from other providers as warranted during this admission. We will continue to watch the patient closely. SARAH PASTOR, MARY [id number]/[facility] #: [id number] [place]
[2017-09-21] MEDS ORDERED: HYDROmorphone PCA* 20 MG/20 ML PCA.SYRING PCA SCH (20:00)
[2017-09-21] MEDS: Ondansetron INJ* 2 MG/ML VIAL IV SCH (20:53)
[2017-09-21] MEDS: Ketorolac INJ* 15 MG/ML 1 ML VIAL IV PUSH SCH (20:55)
[2017-09-22] MEDS: NS 0.9% 1000 ML* 1,000 ML IVPB SCH ×2 (00:55→05:58)
[2017-09-22] MEDS: Ondansetron INJ* 2 MG/ML VIAL IV SCH (02:54)
[2017-09-22] MEDS: Ketorolac INJ* 15 MG/ML 1 ML VIAL IV PUSH SCH (02:56)
--- NOTE | 2017-09-22 08:47 | PN ---
Progress Note - Progress Note Date of Service: 09/22/17 SOAP: Subjective: Pain rated at 3/10, but "not bad". No nausea or emesis. + solid food (meatloaf, mashed potatoes, crackers) + void. + ambulated independently around unit. Objective: Selected Entries 09/22/17 07:44 Temperature 97.7 F Temperature Oral Source Pulse Rate 73 Respiratory 18 Rate Blood Pressure 144/81 (mmHg) Blood Pressure 97 Mean O2 Sat by Pulse 100 Oximetry Patient on Room Yes Air NAD, AAO x 3 Abd and pelvis are soft, nontender Right groin is soft, slightly tender with very small <1 cm area of ecchymosis. 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 Pain and nausea are well controlled. Plan: 1. Transition IV to PO meds. 2. Stop IV fluids. 3. Continue to ambulate until discharge to home. 4. Routine Interventional Radiology follow up will include RN clinic follow up telephone calls 09/25/17 and , 09/28/17. Follow up in the clinic in 6 weeks and 6 months. 5. Outpatient Rx regimen will include: Toradol 10 mg PO Q 6 hours x 3 days, dispense #15, 1 refill AFTER 3 days of Toradol, start Naproxen 250 mg PO every 12 hours x 3 days (DO NOT COMBINE TORADOL AND NAPROXEN) [place] 5/325 1 or 2 tablets PO Q 6 hours PRN x 5 days, dispense #30 (thirty), no refills Zofran 4 mg PO Q 6 hours x 5 days, dispense #30, 1 refill Scopoloamine 1.5 mg TD patch: on the morning of Monday, replace current patch with new patch and wear x 3 days 6. Patient advised to purchase laxative tea (E.g. Smooth Move) and drink one cup daily x 1 week to avoid constipation.
[2017-09-22] MEDS ORDERED: HYDROcodone/ACETAMIN 5-325 MG* 1 TAB PO PRN (08:48)
[2017-09-22] MEDS ORDERED: Ondansetron ODT TAB* 4 MG PO SCH (09:00)
[2017-09-22] MEDS ORDERED: Clopidogrel TAB* 75 MG PO SCH (09:00)
[2017-09-22] MEDS ORDERED: Atorvastatin* 80 MG TAB PO SCH (09:00)
[2017-09-22] MEDS ORDERED: Ferrous Sulfate TAB* 325 MG PO SCH (09:00)
[2017-09-22] MEDS ORDERED: amLODIPine TAB* 5 MG PO SCH (09:00)
[2017-09-22] MEDS ORDERED: Aspirin 81 mg CHEW TAB* 81 MG TAB.CHEW PO SCH (09:00)
[2017-09-22] MEDS ORDERED: Metoprolol Succinate XL TAB* 100 MG PO SCH (09:00)
[2017-09-22] MEDS ORDERED: Ketorolac TAB * 10 MG TAB PO SCH (09:00)
[2017-09-22 12:33] VITALS: BP 141/72
--- NOTE | 2017-09-23 00:34 | DS ---
cc: Dontrell Alicia MD* DISCHARGE SUMMARY: DATE OF ADMISSION: 09/21/17 DATE OF DISCHARGE: 09/22/17 PROVIDER: Nae Lin NP ATTENDING PHYSICIAN: Anika Ortiz MD* (dictated by Nae Lin NP). PRIMARY CARE PROVIDER: CALEB Macdonald PRIMARY DIAGNOSIS: Uterine artery embolization for adenomyosis. SECONDARY DIAGNOSES: 1. Non-ST elevation myocardial infarction in August. 2. Dysmenorrhea. 3. Hypertension. 4. Osteoarthritis. STUDIES COMPLETED WHILE IN THE HOSPITAL: She did not have any studies completed. DISCHARGE MEDICATIONS: 1. Hydrocodone/acetaminophen 5/325 two tablets p.o. q. 6 hours as needed for pain. 2. Toradol 5 mg p.o. q. 6 hours x3 days, then Advil 200 mg p.o. q. 6 hours x3 days. 3. Zofran 4 mg p.o. q. 6 hours as needed for nausea. 4. Scopolamine patch 1.5 mg 1 patch apply on Monday. CONTINUED HOME MEDICATIONS: 1. Amlodipine 2.5 mg p.o. daily. 2. Aspirin 81 mg p.o. daily. 3. Atorvastatin 80 mg p.o. daily. 4. Clopidogrel 75 mg p.o. daily. 5. Ferrous sulfate 325 mg p.o. daily. 6. Metoprolol 100 mg p.o. daily. HISTORY OF PRESENT ILLNESS AND HOSPITAL COURSE: Ms. Calderon is a pleasant 52- year- old female patient who was admitted to the hospital on 09/21/17 for an elective uterine artery embolization for adenomyosis. She carries a recent history back on 08/30/17 having a bout of chest pain. The patient was admitted for chest pain, rule out acute coronary syndrome. During that admission, she was noted to be severely anemic with a hemoglobin of 7.4 and hematocrit around 14. The patient had a persistent headache and chest pain, fatigue and was being set up for cardiac stress test; however, she did have positive troponins on that admission. The patient was seen by Cardiology who determined that the patient should have a followup cardiac care and possibly cardiac catheterization; however, the patient's source of bleeding for her very profound anemia was vaginal bleeding secondary to adenomyosis. During that admission on 08/30/17, the patient was seen by Dr. Jacki Oviedo after her cardiac workup was complete. During that admission, she was referred to Dr. Dontrell Alicia for possible uterine artery embolization. She did during this hospitalization proceed with the uterine artery embolization. The patient has no complaints post surgical. During her hospitalization, she was monitored. She has no complaints. Denies any fever or chills. Denies any nausea or vomiting, denies any chest pain or shortness of breath. She denies any headache. She has no other further complaints. She is doing well postoperatively from her uterine artery embolization. At this time, she is stable for discharge home. Ms. Calderon will be discharged home. PHYSICAL EXAMINATION: Vital signs are as follows: Temperature was 98.8, heart rate was 68, respirations 16, O2 saturations on room air was 98%, blood pressure 141/72. Neurological: She is alert and oriented x3. There is no focal neuro deficits. General: She is alert, sitting up in the bed. She is in no acute distress. She is able to move all extremities. Extraocular eye movements are intact. Heart: S1, S2. There are no murmurs, rubs or gallops. She has regular rate and rhythm. Lungs are clear to auscultation bilaterally. There is no use of accessory muscles. There is good aeration. Abdomen: Soft and nontender. Bowel sounds are positive x4. Extremities: There is no cyanosis or edema. Skin: Intact. DISCHARGE PLAN: Ms. Calderon will be discharged back home. 1. Activity as tolerated. 2. Uterine artery embolization. She should take Toradol 5 mg p.o. q. 6 hours x3 days and then stop Toradol and start Advil 200 mg p.o. q. 6 hours x3 days. The patient was instructed not to take Toradol and Advil together. She was also instructed to watch for any signs of bleeding, vomiting blood, any black or tarry stools, bright red rectal bleeding. The patient verbalized understanding. She was also prescribed hydrocodone/acetaminophen 5/325, she can take one to two tablets every 6 hours as needed for pain. She was also prescribed Zofran 4 mg ODT q. 6 hours as needed for nausea. She was also prescribed Scopolamine patch 1.5 mg as needed for any dizziness or nausea. 3. Status post non-STEMI. She should continue Plavix and aspirin. 4. Hypertension. She should continue her amlodipine and metoprolol as well as her baby aspirin. 5. For anemia, she should continue her ferrous sulfate at 325 mg p.o. daily. 6. She should follow up with Dr. Alicia in 6 weeks. 7. She should follow up with her primary care provider in 4 to 7 days. 8. The patient was instructed to return to the emergency room for any chest pain or shortness of breath or any other concerning symptoms. The patient was advised that if her pain is uncontrolled that she should contact Dr. Alicia for further instructions. This is summarization of her hospitalization. For further details, please see the entire medical record. TIME SPENT: Time spent on this discharge was approximately 60 minutes, greater than half of that time was spent with the patient discussing discharge plans and instructions. CONDITION ON DISCHARGE: Stable. This plan was discussed with my attending, Dr. Anika Ortiz and she is in agreement with my plan. NAE LIN, MARY [id number]/[facility] #: [id number] [place]
== END 2017-09-22 13:15 | disposition home or self-care (01) ==
LOC: CHICATH 10:55 → INTOOBSV 16:39 → SSU 16:39
PROVIDERS: ADMIT Internal Medicine; ATTEND Radiology Diagnostic Radiology
DX: N80.0 Endometriosis of uterus (principal); I25.2 Old myocardial infarction; N94.6 Dysmenorrhea, unspecified; I10 Essential (primary) hypertension; M19.90 Unspecified osteoarthritis, unspecified site; Z79.899 Other long term (current) drug therapy; D64.9 Anemia, unspecified; Z88.0 Allergy status to penicillin; Z88.2 Allergy status to sulfonamides
CPT/HCPCS: 36415; 37243; 75736; 76937; 84702; 96374; 99156; 99157; A9270-GY; C1884; C1887; C1894; G0378; J1170; J1644; J1885; J2250; J2310; J2405; J3010

== ENCOUNTER → 2018-06-26 10:05 | Emergency (ER) | payer BC ==
--- NOTE | 2018-06-26 10:36 | ED ---
GI/ HPI - HPI Summary HPI Summary: This patient is a 52 year old female who presents to the ED with her son Willian c/ o gross vaginal bleeding that began yesterday morning, she contacted Dr. Baig and he suggested she come the ED. She states she has had this in the past and had an embolization last spring by Dr. Alicia but it was not successful. She states she has not had period for a couple months and then it began yesterday. When it began she began having cramping and vaginal bleeding with clots. She rates the pain 3/10. Due to the cramping she has not eaten much or slept well which has caused her to feel weak and fatigued. She is on daily ASA and plavix for a heart issue dealing with anemia due to vaginal bleeding. She also has HTN and is on meds, she is mildly hypertensive on exam but states she just recently took her morning medications in the last hour. She denies any chance of . Pt states she did have a transvaginal US on the of this month that showed a polyp, she does have an appointment for removal. - History of Current Complaint Chief Complaint: EDVaginalBleeding Time Seen by Provider: 06/26/18 10:30 Stated Complaint: PELVIC PAIN, Hx Obtained From: Patient Hx Last Menstrual Period: heavy and erratic - December 16 started last Onset/Duration: Still Present Timing: Constant Severity: Moderate Current Severity: Moderate Vaginal Bleeding Description: Clots Pain Intensity: 3 Location of Pain: Suprapubic Pain Characteristics: Cramping - Additional Pertinent History Primary Care Physician: MARLENI - Allergy/Home Medications Allergies/Adverse Reactions: Allergies Allergy/AdvReac Type Severity Reaction Status Date / Time Penicillins Allergy Rash Verified 06/26/18 10:27 Sulfa (Sulfonamide Allergy Rash Verified 06/26/18 10:27 Antibiotics) PMH/Surg Hx/FS Hx/Imm Hx Endocrine/Hematology History: Denies: Hx Diabetes, Hx Thyroid Disease Cardiovascular History: Reports: Hx Angina, Hx Hypertension, Hx Myocardial Infarction Denies: Hx Coronary Artery Disease, Hx Hypercholesterolemia, Hx Pacemaker/ICD , Hx Syncope, Hx Valvular Heart Disease Respiratory History: Denies: Hx Asthma, Hx Chronic Obstructive Pulmonary Disease (COPD) GI History: Denies: Hx Crohn's Disease, Hx Diverticulosis History: Denies: Hx Dialysis, Hx Renal Disease Musculoskeletal History: Denies: Hx Arthritis, Hx Osteoporosis Sensory History: Denies: Hx Contacts or Glasses, Hx Hearing Aid Opthamlomology History: Denies: Hx Contacts or Glasses Neurological History: Reports: Hx Headaches Psychiatric History: Denies: Hx Attention Deficit Hyperactivity Disorder, Hx Panic Disorder - Surgical History Surgery Procedure, Year, and Place: breast reduction 1993; left knee arthroscopic 1987 and 1988 then partial knee replacement 2003 and total knee replacement 2014; Infectious Disease History: No Infectious Disease History: Denies: Hx Clostridium Difficile, Hx Hepatitis, Hx Human Immunodeficiency Virus (HIV), Hx of Known/Suspected MRSA, Hx Shingles, Hx Tuberculosis, Hx Known/ Suspected VRE, Hx Known/Suspected VRSA, History Other Infectious Disease, Traveled Outside the [place] in Last 30 Days - Family History Known Family History: Positive: Hypertension - Social History Alcohol Use: Rare Substance Use Type: Reports: None Hx Tobacco Use: No Smoking Status (MU): Never Smoked Tobacco Review of Systems Positive: Fatigue Positive: Abdominal Pain - cramping Positive: other - bleeding Positive: Weakness All Other Systems Reviewed And Are Negative: Yes Physical Exam - Summary Physical Exam Summary: Appearance: Well appearing, no pain distress Skin: warm, dry, reflects adequate perfusion, there is a left knee replacement scar Head/face: normal Eyes: EOMI, ROBERT ENT: mucous membranes moist Neck: supple, non-tender Respiratory: CTA, breath sounds present Cardiovascular: RRR, pulses symmetrical Abdomen: non-tender, soft Bowel Sounds: present Musculoskeletal: normal, strength/ROM intact Neuro: normal, sensory motor intact, A&Ox3 Pelvic: there is a blood soaked tampon. There is a mild amount of blood coming from the cervix. The uterus is non boggy and not enlarged. The exam was supervised by PA student Sara Triage Information Reviewed: Yes Vital Signs On Initial Exam: Initial Vitals Temp Pulse Resp BP Pulse Ox 97.2 F 72 18 186/101 98 06/26/18 10:24 06/26/18 10:24 06/26/18 10:24 06/26/18 10:24 06/26/18 10:24 Vital Signs Reviewed: Yes Diagnostics - Vital Signs Vital Signs Temp Pulse Resp BP Pulse Ox 06/26/18 10:24 97.2 F 72 18 186/101 98 - Laboratory Result Diagrams: 06/26/18 10:03 06/26/18 10:03 Lab Statement: Any lab studies that have been ordered have been reviewed, and results considered in the medical decision making process. GIGU Course/Dx - Course Course Of Treatment: Patient with history of menorrhagia status post uterine artery ablation in the past. Now she is known to have a uterine polyp causing bleeding. Bleeding only for one day. Hemoglobin normal. Discussed with the interventional radiologist and also with the FURNACE BUILDER. We will start her on Postel and have her follow-up with [facility] [employer] [facility]PERATOR in the outpatient setting. Assessment/Plan: Nurses note reviewed - Diagnoses Differential Diagnoses - Female: Other - Fibroid bleeding, dysfunctional bleeding, endometrial cancer, uterine polyp Provider Diagnoses: Menorrhagia, Uterine polyp - Physician Notifications Discussed Care Of Patient With: Dontrell Alicia Time Discussed With Above Provider: 10:49 Instructed by Provider To: Other - Dr. Alicia states she is not a candidate for a repeat embolization Discharge - Sign-Out/Discharge Documenting (check all that apply): Patient Departure - Discharge Plan Condition: Improved Disposition: HOME Prescriptions: Mefenamic Acid 250 mg PO TID #12 cap Patient Education Materials: Menorrhagia (ED) Referrals: John Oviedo MD [Medical Doctor] - Eliana Yap NP [Nurse Practitioner] - Additional Instructions: Call the follow-up with your FURNACE BUILDER tomorrow. Began medication today. Take it 3 times a day. Return with persistent/heavy bleeding, weakness/lightheadedness , worse, new symptoms or other concerns. Have your blood pressure rechecked by your PCP. - Billing Disposition and Condition Condition: IMPROVED Disposition: Home - Attestation Statements Document Initiated by Elizabeth: Yes Documenting Scribe: Ryne Valle Provider For Whom Elizabeth is Documenting (Include Credential): Jarrett Rizvi MD Scribe Attestation: IRyne , scribed for Jarrett Rizvi MD on 06/26/18 at 1500. Scribe Documentation Reviewed: Yes Provider Attestation: The documentation as recorded by the Ryne almeida accurately reflects the service I personally performed and the decisions made by me, Jarrett Rizvi MD Status of Scribe Document: Viewed Consult Consult: 1115: I discussed the case with Dr. Oviedo and he suggested starting the patient on Mefenamic Acid for menorrhagia and discharging her home.
[2018-06-26 11:02] LABS: ABS Basophils 0 10^3/ul (0-0.2); ABS Eosinophils 0.1 10^3/ul (0-0.6); ABS Lymphocytes 1.4 10^3/ul (1.0-4.8); ABS Monocytes 0.3 10^3/ul (0-0.8); ABS Neutrophils 2.7 10^3/ul (1.5-7.7); ABS Nucleated RBC 0 10^3/ul; Eosinophil % 2.8 %; Hematocrit 41 % (35-47); Lymphocyte % 29.9 %; Mean Corpuscular HGB Conc 34 g/dl (31-36); Mean Corpuscular Hemoglobin 29 pg (27-31); Mean Corpuscular Volume 86 fL (80-97); Mean Platelet Volume 7.5 fL (7.4-10.4); Nucleated Red Blood Cells % 0.1; Platelet Count 206 10^3/ul (150-450); Red Cell Distribution Width 16 % (10.5-15); White Blood Count 4.5 10^3/ul (3.5-10.8)
[2018-06-26 11:24] LABS: BUN/Creatinine Ratio 18.2 (8-20); Calcium 9.8 mg/dL (8.6-10.3); Potassium 4.1 mmol/L (3.5-5.0)
[2018-06-26 11:29] VITALS: BP 169/98
== END | disposition home or self-care (01) ==
LOC: ED 10:05
DX: N92.0 Excessive and frequent menstruation with regular cycle (principal); N28.89 Other specified disorders of kidney and ureter; R53.83 Other fatigue; R10.9 Unspecified abdominal pain; R53.1 Weakness
CPT/HCPCS: 36415; 80048; 85025; 86850; 86900; 86901; 99282

== ENCOUNTER 2018-07-25 05:34 | Day surgery (SDC) | payer BC ==
[~2018-07-25 05:34] MED LIST: Buffered Lidocaine 1% SYRIN* 1 ML/SYRINGE INTRADERM ONE
[2018-07-25] MEDS ORDERED: Lactated Ringers 1000 ML Bag* 1,000 ML IV SCH (06:00)
[2018-07-25] MEDS ORDERED: Midazolam* 1 MG/ML 5 ML VIAL (5 MG) ONE (07:28)
[2018-07-25] MEDS ORDERED: Propofol* 10 MG/ML 20 ML BTL ONE (07:34)
[2018-07-25] MEDS ORDERED: fentaNYL* 50 MCG/ML 2 ML VIAL (100 MCG VIAL) ONE ×2 (07:34→08:41)
[2018-07-25] MEDS ORDERED: Dexamethasone IV* 4 MG/ML 1 ML (4 MG) ONE (07:42)
[2018-07-25] MEDS ORDERED: Ondansetron INJ* 2 MG/ML VIAL ONE (08:07)
[2018-07-25] MEDS ORDERED: oxyCODONE/Acetamin 5/325 MG* TAB PO PRN (08:26)
[2018-07-25] MEDS ORDERED: Naloxone* 0.4 MG/ML 1 ML VIAL IV PRN (08:26)
[2018-07-25] MEDS ORDERED: Ondansetron INJ* 2 MG/ML VIAL IV PRN (08:26)
[2018-07-25] MEDS ORDERED: oxyCODONE/Acetamin 5/325 MG* TAB ONE (08:41)
[2018-07-25] MEDS: fentaNYL* 50 MCG/ML 2 ML VIAL (100 MCG VIAL) IV PRN ×3 (08:43→09:15)
[2018-07-25 10:38] VITALS: BP 137/91
--- NOTE | 2018-08-02 09:57 | OP ---
DATE OF OPERATION: 07/25/18 - [facility] DATE OF : 65 SURGEON: Dr. Oviedo. ANESTHESIA: General anesthetic with endotracheal intubation. PRE-OP DIAGNOSES: 1. Endometrial intracavitary fibroid. 2. Menorrhagia. POST-OP DIAGNOSES: 1. Endometrial intracavitary fibroid. 2. Menorrhagia. OPERATIVE PROCEDURES: 1. Hysteroscopic myomectomy. 2. Dilatation and curettage. ESTIMATED BLOOD LOSS: Minimal, less than 5 cc. SPECIMEN: Sent to pathology was fragment of uterine myoma and endometrial curettings. FLUID: The patient received 1 L of IV crystalloid fluid. Hysteroscopic fluid was even at 2900 cc. URINE OUTPUT: 20 cc of clear urine. FINDINGS: The patient was noted to have an anteverted uterus, which sounded to 13 cm. The endometrium was noted to be proliferative with 2 distinct round polyp-like lesions with a firm consistency consistent with intracavitary fibroid. DESCRIPTION OF PROCEDURE: The patient was taken to the operating room, where she was identified. She was placed on the operating table, where a general anesthetic with endotracheal intubation was obtained without difficulty. She was then placed in the dorsal lithotomy position, prepped and draped in the normal sterile fashion. Attention was then brought on to the patient's perineum , where the urethra was catheterized and clear of urine. A weighted speculum was inserted into the patient's vagina. The cervix was identified and grasped with a single-tooth tenaculum and the uterus was then sounded. After sounding the uterus, Hegar dilators were used to dilate the cervix and through the cervix , an operative hysteroscope was introduced, and a survey of the patient's intrauterine cavity revealed findings as noticed above hysteroscopically. At this point, I proceeded to perform an intrauterine myomectomy with the surgical hysteroscope. The fibroids were shaved until they were completely removed from the endometrial cavity. These shavings were collected and sent to pathology as fragments of uterine fibroids. After the fibroids were completely removed, I then proceeded to remove the hysteroscope from the patient's uterus and a sharp curettage was performed. After the curettage, endometrial curettings were sent to pathology. A second look with the hysteroscope revealed complete denudation of the patient's endometrial cavity. At this point, all the instruments were removed from the patient's vagina. Sponge, lap and needle counts were correct x2. She was then transferred to recovery room area in stable condition. [id number]/[facility] #: [id number] [place]
== END 2018-07-25 10:39 | disposition home or self-care (01) ==
LOC: OR 05:34
PROVIDERS: ATTEND Obstetrics & Gynecology
DX: N92.0 Excessive and frequent menstruation with regular cycle (principal); D25.0 Submucous leiomyoma of uterus; I25.10 Atherosclerotic heart disease of native coronary artery without angina pectoris; I25.2 Old myocardial infarction; Z79.01 Long term (current) use of anticoagulants
CPT/HCPCS: 88305; A9270-GY; J1100; J2250; J2405; J2704; J3010